=== PATIENT | female | born 1940 | race Caucasian/White ===

== ENCOUNTER 2016-05-30 11:09 | Outpatient (CLI) | payer MEDICARE, OTHER | END 2016-05-30 11:10 | disposition home or self-care (01) | DX: G47.33 Obstructive sleep apnea (adult) (pediatric) (principal); R09.02 Hypoxemia | CPT/HCPCS: 99214; G0463 ==

== ENCOUNTER 2016-07-28 08:40 | Outpatient (CLI) | payer MEDICARE, OTHER | END 2016-07-28 08:41 | disposition home or self-care (01) | DX: Z51.81 Encounter for therapeutic drug level monitoring (principal); E78.9 Disorder of lipoprotein metabolism, unspecified; N28.9 Disorder of kidney and ureter, unspecified ==

== ENCOUNTER 2016-08-14 13:22 | Outpatient (CLI) | payer MEDICARE, OTHER | END 2016-08-14 13:23 | disposition home or self-care (01) | DX: R06.02 Shortness of breath (principal); F17.200 Nicotine dependence, unspecified, uncomplicated ==

== ENCOUNTER 2016-11-06 08:49 | Outpatient (CLI) | payer MEDICARE, OTHER ==
[2016-11-06 20:24] LABS: ALBUMIN/GLOBULIN RATIO 1.1 (1.0-2.2); BILIRUBIN,TOTAL 1.2 mg/dL (0.2-1.0); BUN - BLOOD UREA NITROGEN 23 mg/dL (6-20); CALCIUM 9.3 mg/dL (8.5-10.3); CARBON DIOXIDE - CO2 32 mmol/L (21-32); CHLORIDE 102 mmol/L (101-111); CHOL/HDL RATIO 3.2 (<4.4); CHOLESTEROL 142 mg/dL; CREATININE 0.8 mg/dL (0.4-1.0); GFR - MDRD 70 (>89); GLUCOSE 103 mg/dL (70-100); HDL CHOLESTEROL 44 mg/dL; LDL/HDL RATIO 1.5 (<4.4); POTASSIUM 4.1 mmol/L (3.5-5.0); SODIUM 141 mmol/L (135-145); TOTAL PROTEIN 7.3 g/dL (6.7-8.2); TRIGLYCERIDES 167 mg/dL; VLDL CHOLESTEROL 33 mg/dL
== END 2016-11-06 08:50 | disposition home or self-care (01) ==
LOC: LAB.F 08:49
PROVIDERS: ATTEND Physician Assistant Medical
DX: E78.9 Disorder of lipoprotein metabolism, unspecified (principal)
CPT/HCPCS: 36415; 80053; 80061

== ENCOUNTER 2017-01-09 11:08 | Outpatient (CLI) | payer MEDICARE, OTHER ==
--- NOTE | 2017-01-09 12:12 | Ultrasound Report ---
LEFT LEG VENOUS DUPLEX: 01/09/2017 CLINICAL INDICATION: Left edema, swelling. TECHNIQUE: Real-time sonographic vascular imaging was performed by the tetryl screen operator through the left l ower extremity utilizing both color flow and Doppler spectral analysis. Multiple architectural representative stat ic images were saved for review. FINDINGS: A left lower extremity venous sonogram is performed revealing the common femoral, superfici al femoral, profunda femoris, and popliteal veins to be adequately visualized without intraluminal de fects. There is normal venous compression, augmentation, phasicity, and spontaneity of venous flow. In the calf, the visualized more cephalad portions of posterior tibial and peroneal veins are grossly compressible, without filling defects. IMPRESSION: NO EVIDENCE OF DEEP VENOUS THROMBOSIS. JOB #: [id number] EXT JOB #:[id number]
== END 2017-01-09 11:09 | disposition home or self-care (01) ==
LOC: DI 11:08
PROVIDERS: ATTEND Physician Assistant Medical
DX: R60.0 Localized edema (principal)

== ENCOUNTER 2017-11-22 10:38 | Outpatient (CLI) | payer MEDICARE, OTHER | END 2017-11-22 10:39 | disposition home or self-care (01) | LOC: SC 10:38 | PROVIDERS: ATTEND Nurse Practitioner Family | DX: G47.33 Obstructive sleep apnea (adult) (pediatric) (principal) | CPT/HCPCS: 99214; G0463; 99212 ==

== ENCOUNTER 2017-12-19 09:29 | Outpatient (CLI) | payer MEDICARE, OTHER ==
[2017-12-19 18:12] LABS: HB2 TOTAL 15.1 g/dL; HEMOGLOBIN A1C 0.56 g/dL; HEMOGLOBIN A1C % 5.5 % (4.6-6.2)
[2017-12-19 18:25] LABS: ALBUMIN/GLOBULIN RATIO 1.2 (1.0-2.2); ALKALINE PHOSPHATASE 89 IU/L (42-121); ALT ALANINE AMINOTRANSFERASE 17 IU/L (10-60); AST ASPARTATE AMINOTRANSFERASE 20 IU/L (10-42); BILIRUBIN,TOTAL 1.2 mg/dL (0.2-1.0); BUN - BLOOD UREA NITROGEN 27 mg/dL (6-20); CALCIUM 9.4 mg/dL (8.5-10.3); CARBON DIOXIDE - CO2 30 mmol/L (21-32); CHLORIDE 107 mmol/L (101-111); CHOL/HDL RATIO 3.1 (<4.4); CHOLESTEROL 127 mg/dL; CREATININE 0.7 mg/dL (0.4-1.0); GFR - MDRD 81 (>89); GLUCOSE 92 mg/dL (70-100); HDL CHOLESTEROL 41 mg/dL; LDL CHOLESTEROL,CALCULATED 63 mg/dL; LDL/HDL RATIO 1.5 (<4.4); SODIUM 142 mmol/L (135-145); TOTAL PROTEIN 7.4 g/dL (6.7-8.2); VLDL CHOLESTEROL 23 mg/dL
== END 2017-12-19 09:30 | disposition home or self-care (01) ==
LOC: LAB.F 09:29
PROVIDERS: ATTEND Internal Medicine
DX: E78.9 Disorder of lipoprotein metabolism, unspecified (principal); R73.01 Impaired fasting glucose
CPT/HCPCS: 36415; 80053; 80061; 83036; 83721

== ENCOUNTER 2018-07-23 07:13 | Outpatient (CLI) | payer MEDICARE, OTHER ==
[2018-07-23 10:58] LABS: CALCIUM 9.2 mg/dL (8.5-10.3); CREATININE 0.7 mg/dL (0.4-1.0)
[2018-07-23 11:05] LABS: CREATININE,URINE 164.8 mg/dL; MICROALBUM/CREATININE RATIO,UR 12.1 ug/mg (<30.0)
[2018-07-23 11:35] LABS: HB2 TOTAL 14.6 g/dL; HEMOGLOBIN A1C 0.57 g/dL; HEMOGLOBIN A1C % 5.7 % (4.6-6.2)
== END 2018-07-23 07:14 | disposition home or self-care (01) ==
LOC: LAB.F 07:13
PROVIDERS: ATTEND Physician Assistant Medical
DX: R73.01 Impaired fasting glucose (principal)
CPT/HCPCS: 36415; 80048; 82043; 82570; 83036

== ENCOUNTER 2018-08-30 15:26 | Outpatient (CLI) | payer MEDICARE, OTHER ==
[2018-08-30 17:43] LABS: BASOPHILS # (AUTO) 0.1 10^3/uL (0.0-0.1); BASOPHILS % (AUTO) 0.8 %; EOSINOPHILS # (AUTO) 0.1 10^3/uL (0.0-0.7); EOSINOPHILS % (AUTO) 1.7 %; HGB - HEMOGLOBIN 13.4 g/dL (12.0-16.0); LYMPHOCYTES # (AUTO) 2.2 10^3/uL (1.5-3.5); LYMPHOCYTES % (AUTO) 26.4 %; MEAN CORPUSCULAR HEMOGLOBIN 31.6 pg (27.0-31.0); MEAN CORPUSCULAR HGB CONC 33.3 g/dL (32.0-36.0); MEAN CORPUSCULAR VOLUME 94.9 fL (81.0-99.0); MEAN PLATELET VOLUME 9.2 fL (7.9-10.8); MONOCYTES # (AUTO) 0.9 10^3/uL (0.0-1.0); MONOCYTES % (AUTO) 11.1 %; PLT - PLATELET COUNT 203 10^3/uL (130-450); RED BLOOD COUNT 4.22 10^6/uL (4.20-5.40); RED CELL DISTRIBUTION WIDTH 12.6 % (12.0-15.0); WHITE BLOOD COUNT 8.3 x10^3/uL (4.8-10.8)
== END 2018-08-30 15:27 | disposition home or self-care (01) ==
LOC: LAB.F 15:26
PROVIDERS: ATTEND Physician Assistant Medical
DX: R53.83 Other fatigue (principal)
CPT/HCPCS: 36415; 84443; 85025

== ENCOUNTER 2018-09-25 11:18 | Outpatient (CLI) | payer MEDICARE, OTHER ==
--- NOTE | 2018-09-25 14:13 | XRAY Report ---
Reason: WRIST JOINT PAIN,RIGHT Procedure Date: 09/25/2018 Accession Number: [id number] / [id number] Procedure: XR - Wrist 2 View RT CPT Code: FULL RESULT: EXAM: RIGHT WRIST RADIOGRAPHY EXAM DATE: 09/25/2018 12:14 PM. CLINICAL HISTORY: Right wrist pain. COMPARISON: None. TECHNIQUE: 3 views. FINDINGS: Bones: There is a nondisplaced comminuted fracture of the radial styloid with intra-articular involvement, seen best on lateral view. There is a small dorsal avulsed fragment. Joints: Minimal chronic narrowing of the radiocarpal joint Soft Tissues: Normal. No soft tissue swelling. IMPRESSION: Nondisplaced comminuted distal right radial styloid process fracture as described above. The findings were discussed with the referring physician's nurse Kathy. BERGERON
== END 2018-09-25 11:19 | disposition home or self-care (01) ==
LOC: DI 11:18
PROVIDERS: ATTEND Registered Nurse
DX: S52.514A Nondisplaced fracture of right radial styloid process, initial encounter for closed fracture (principal)

== ENCOUNTER 2019-04-14 14:30 | Outpatient (CLI) | payer MEDICARE, OTHER ==
[2019-04-14 15:34] VITALS: BP 108/82
--- NOTE | 2019-04-14 15:34 | SLEEP CARE CONSULTATION ---
Information from patient questionnaire entered by Judi Gómez. I have reviewed and concur with the information entered by Judi Gómez. This document represents the service I personally performed and the decisions made by me, Abril Kruger, RN, MSN, PRINCIPAL NETWORK ENGINEER. History of Present Illness Previous diagnosis: Moderate, Obstructive Sleep Apnea-Hypopnea Syndrome AHI: 25.3 Reason for follow up: annual (last seen 2017) Equipment type: BiPAP Equipment obtained from: [facility] (having getting supplies and would like to transfer - she also gets her O2 there as well.) Mask style: Nasal (Wisp) Mask brand: Respironics Backup mask available: Yes Last cushion change: many months HPI additional information: Patient working with new PCP for depression as advised at last visit. Medications recently changed. Patient continues to require long sleep time with daily nap. Progress notes reviewed : Overnight pulse oximetry ordered in November with BiPAP and oxygen performed in March and showed oxygen saturation of </=88% 40 minutes or 5.5% of the time used and apnea well controlled with residual AHI of 2.5. Her BiPAP was increased from 17/11 to 18/10 to assist reduction of obesity hypoventilation. No other changed in medical changes stated by patient. However, she did not use Spiriva orderd due to cost. I reviewed benefit of Spiriva and advised to contact her loc[facility] ten[facility] psychiatrist to discuss other medication that patient can afford. Patient agreed with plan. Another pulse oximetry was ordered on new BiPAP pressure with oxygen at 5liters. Patient advised to contact this office if not contacted by [facility] for test in 1-2 weeks and agreed with plan. Multiple calls noted to get pulse oximetry results. Patient also called voicing frustration with [facility] and request to transfer. An appointment was made in August. The June 15 pulse oximetry results recievee 07/24/18 and better results: Now onlyu 5:16 minutes oxygen saturation ,+88% and 15.16 minutes ,+ 89%. Thus I increased the BiPAP pressure range to 20/12 for obesity hypoventilation. Another overnight pulse oximetry was ordered new pressure and oxygen flow of 5 liters with BiPAP. This was completed but patient unable to get results. She was to see me in August but fell and cancelled appointment and forgot to reschedule. Patient bought a So Clean device and likes benefit. CPAP Compliance Data - Data Reviewed with Patient Average duration of nightly device use: 12.1 Compliance rate %: 99.4 (180 days includes nap daily) Current pressure setting (cmH2O): 20/12 Humidity settin Heated hose settin Average residual AHI: 3.7 Average large leak: 1 sec Subjective Patient concerns: reports: dry mouth, nose, throat (occasionally ), other (mask not fitting correctly. She is using an old style but would like to try new style. ). denies: aerophagia, mask discomfort, air blowing in eyes, mask leak noise, condensation in mask/hose, nasal congestion, epistaxis Observed to snore while using device: No (single ) Current pressure setting perceived as: comfortable On therapy, patient: reports: sleeping better, awakening more refreshed, being more awake and alert during the day, more rested overall. denies: drowsiness while driving Initial [place] Sleepiness Scale score: 3 Current [place] Sleepiness Scale score: 2 Allergies and Home Medications Known drug allergies: Yes Home medication list reviewed: Yes (see list of corrections) Review of Systems Review of systems same as previous: No (What she thought was a sinus infection was a tooth abscess and pulled ) Physical Exam Blood Pressure: 108/82 Cuff size: wrist Heart Rate: 84 O2 Saturation: 96 Height: 5 ft 3 in Weight: 314 lb Weight change since last visit: gained 10 pounds Body Mass Index: 55.6 BMI Classification: Obesity Class 3 Impression and Plan 1. Obstructive Sleep Apnea-Hypopnea Syndrome, moderate, with good treatment compliance and good apnea control. On BiPAP therapy, the patient has better sleep quality and is more rested overall. However, she continues to require extra sleep and is working on her depression managment with her new PCP Dr. Goff. Medications recently modified. She is also having difficulty getting supplies as well as getting results from pulse oximetries ordered to check nocturnal hypoxia efficacy on her oxygen at 5 liters per BiPAP. Thus patient would like to transfer to another company. I will have my family support coordinator inform her of options and make a transfer [facility] prescription for BiPAP and a repeat pulse oximetry to check efficacy of last BiPAP adjustment. It is hoped the new DME will have better response to order. The oxygen care will also be transfered if possible. Generally it has to be 5 years of use before transfer can be completed. I searched chart and she was started on oxygen in 2016 so another year until transfer can be made. For her mask concerns, I will order a mask refitting. She has also gained most of weight she lost last year. She is advised to lose weight, which will also reduce her obesity hypoventilation. I will also have patient discuss weight loss with her PCP and recommend starting with a diet consultation. Patient's apnea severity and rationale for treatment to reduce apnea, improve sleep quality and reduce cardiovascular and cerebrovascular events was reviewed. I also reviewed the benefit of consistent device use of CPAP for depression/anxiety. * Continue BiPAP pressure at 20/12 cmH2O * Transfer of care to new DME for CPAP * overnight pulse oximetry * Notify me if snoring with mask or feeling that the pressure is too much or too little * Attempt to lose weight * Call this office if any problems using CPAP * Follow up with PCP for weight loss / diet consultation * Return for follow up in 1 year , or sooner if concerns arise * * Addendum 18:30 Called patient to inform her I will have new DME do the pulse oximetry. She is to call me when completed next month so can look for the results. * I also again reviewed her weight and effect to her obesity hyperventilation and encouraged her to discuss diet consultation in her next follow up with Dr. Goff. Also Weight watchers has been successful for some of my patients and to discuss with Dr. Goff. Patient agreed with plan. Time Spent with Patient (minutes): 30 I spent 100% of this visit face to face with the patient with greater than 50% of this was spent time counseling the patient and coordination of care.It also took some time to review her progress notes of pressure adjustments and pulse oximetry results.
== END 2019-04-14 14:31 | disposition home or self-care (01) ==
LOC: SC 14:30
PROVIDERS: ATTEND Nurse Practitioner Family
DX: G47.33 Obstructive sleep apnea (adult) (pediatric) (principal); E66.2 Morbid (severe) obesity with alveolar hypoventilation; Z68.43 Body mass index [BMI] 50.0-59.9, adult
CPT/HCPCS: 99214; G0463; 99212

== ENCOUNTER 2020-03-09 17:28 | Outpatient (CLI) | payer MEDICARE, OTHER | END 2020-03-09 17:29 | disposition critical access hospital (66) | LOC: EMS 17:28 | PROVIDERS: ATTEND Surgery | DX: R53.1 Weakness (principal); R42 Dizziness and giddiness; R06.09 Other forms of dyspnea | CPT/HCPCS: A0425; A0427 ==

== ENCOUNTER 2020-03-09 19:04 | Inpatient (IN) | payer MEDICARE, OTHER ==
[2020-03-09] MEDS ORDERED: VANCOMYCIN INJ 1.5 GM in SODIUM CHLORIDE 0.9% 500 ML IV STA (19:50)
--- NOTE | 2020-03-09 20:01 | XRAY Report ---
PROCEDURE: Chest 1 View X-Ray INDICATIONS: Chest Pain TECHNIQUE: One view of the chest was acquired. COMPARISON: 08/14/16. FINDINGS: Surgical changes and devices: None. Lungs and pleura: No pleural effusions or pneumothorax. Lungs are clear. Mediastinum: Mediastinal contours appear normal. Heart size is normal. Bones and chest wall: No suspicious bony lesions. Overlying soft tissues appear unremarkable. IMPRESSION: 1. No acute cardiopulmonary disease. Reviewed by: Jose Javier MD on 03/09/2020 8:00 PM [facility] Approved by: Jose Javier MD on 03/09/2020 8:00 PM [facility] Station ID: [id number]
[2020-03-09] MEDS ORDERED: VANCOMYCIN 1 GM VIAL ONE (20:05)
[2020-03-09 20:12] LABS: BASOPHILS # (AUTO) 0.1 10^3/uL (0.0-0.1); BASOPHILS % (AUTO) 0.3 %; EOSINOPHILS % (AUTO) 0.1 %; HGB - HEMOGLOBIN 13.7 g/dL (12.0-16.0); LYMPHOCYTES # (AUTO) 1.2 10^3/uL (1.5-3.5); LYMPHOCYTES % (AUTO) 7.2 %; MEAN CORPUSCULAR HEMOGLOBIN 32.5 pg (27.0-31.0); MEAN CORPUSCULAR HGB CONC 33.6 g/dL (32.0-36.0); MEAN CORPUSCULAR VOLUME 96.9 fL (81.0-99.0); MEAN PLATELET VOLUME 11.6 fL (7.9-10.8); MONOCYTES # (AUTO) 1.2 10^3/uL (0.0-1.0); MONOCYTES % (AUTO) 7.5 %; NEUTROPHILS # (AUTO) 13.6 10^3/uL (1.5-6.6); PLT - PLATELET COUNT 155 10^3/uL (130-450); RED BLOOD COUNT 4.21 10^6/uL (4.20-5.40); RED CELL DISTRIBUTION WIDTH 12.8 % (12.0-15.0); WHITE BLOOD COUNT 16.2 x10^3/uL (4.8-10.8)
[2020-03-09 20:18] LABS: INR 1.5 (0.8-1.2)
[2020-03-09 20:27] LABS: ALBUMIN 3.3 g/dL (3.2-5.5); ALBUMIN/GLOBULIN RATIO 0.9 (1.0-2.2); BILIRUBIN,TOTAL 1.8 mg/dL (0.2-1.0); CALCIUM 8.7 mg/dL (8.5-10.3); CREATININE 1.1 mg/dL (0.4-1.0); TOTAL PROTEIN 6.9 g/dL (6.7-8.2)
[2020-03-09] MEDS ORDERED: ASPIRIN 325 MG TABLET PO STA (21:03)
[2020-03-09 22:13] LABS: BILIRUBIN,URINE NEGATIVE (NEGATIVE); GLUCOSE, URINE (UA) NEGATIVE (NEGATIVE); KETONES,URINE (UA) 15 mg/dL (NEGATIVE); LEUKOCYTE ESTERASE, URINE NEGATIVE (NEGATIVE); NITRITE,URINE NEGATIVE (NEGATIVE); OCCULT BLOOD,URINE MODERATE (NEGATIVE); PROTEIN,URINE 30 mg/dL (NEGATIVE); UROBILINOGEN,URINE 0.2 (NORMAL) E.U./dL (NORMAL)
[2020-03-09 22:14] LABS: CLARITY,URINE HAZY (CLEAR)
[2020-03-09 22:21] LABS: SQUAMOUS EPITHELIAL CELL,UR MOD Squamous (<= Few)
[2020-03-09 22:22] LABS: BACTERIA,URINE Few /HPF (None Seen)
[2020-03-09] MEDS ORDERED: ONDANSETRON ODT 4 MG TABLET TL PRN (23:12)
[2020-03-09] MEDS ORDERED: ONDANSETRON 4 MG/2 ML VIAL IVP PRN (23:12)
--- NOTE | 2020-03-09 23:18 | ED Physician Documentation ---
History of Present Illness - Stated complaint Stated Complaint: FALL - Chief complaint Chief Complaint: General - History obtained from History obtained from: Patient, EMS - Additonal information Additional information: Patient is brought to the emergency department after sustaining a fall at home. Patient states that she on twice in the last couple of days while trying to get out of her bed. 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 Patient states that today, her feet slid and she fell to the floor on her bottom. She denies being injured in any way, but medics report that she was too weak to get up that is why they were called. They stated they tried to get her up to walk with a walker and she was not able to do this very well, due to weakness. Patient states she lives by herself at home and does drive. She states that she has felt depressed because of the isolation and all of the turmoil going on in the world and her country. She states that she is just been staying at home by herself. She does have a neighbor that checks in on her and states she has some family members that live nearby, as well. Patient denies any fevers or chills. No cough or shortness of breath. No chest pain, abdominal pain, or nausea/vomiting. No diarrhea. Patient does have a wound on the bottom of her left foot that has been monitored by podiatry. She states she has had the same carpet on her floor for years and is not sure why it feels "slippery" now. She states that she normally walks with a cane around the house but will use a walker outside. No other complaints at this time. Review of Systems Ten Systems: 10 systems reviewed and negative Constitutional: reports: Reviewed and negative. denies: Fever, Chills Eyes: reports: Reviewed and negative Ears: reports: Reviewed and negative Nose: reports: Reviewed and negative Throat: reports: Reviewed and negative Cardiac: reports: Reviewed and negative. denies: Chest pain / pressure Respiratory: reports: Reviewed and negative. denies: Dyspnea GI: reports: Reviewed and negative : reports: Reviewed and negative. denies: Dysuria Skin: reports: Reviewed and negative Musculoskeletal: reports: Extremity swelling, Reviewed and negative Neurologic: reports: Generalized weakness. 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 HEENT: Cataracts - Present Medications Home Medications: Ambulatory Orders Medication Instructions Recorded Confirmed Losartan [Cozaar] 25 mg PO DAILY 03/09/20 03/09/20 Rosuvastatin Calcium [Crestor] 5 mg PO DAILY 03/09/20 03/10/20 buPROPion HCl [Bupropion Xl] 150 mg PO DAILY 03/10/20 03/10/20 - Allergies Allergies/Adverse Reactions: Allergies Allergy/AdvReac Type Severity Reaction Status Date / Time acetaminophen [From Vicodin] Allergy Mild Nausea Verified 03/09/20 19:16 hydrocodone bitartrate * Allergy Mild Nausea Verified 03/09/20 19:16 [From Vicodin] - Social History Does the pt smoke?: Yes Smoking Status: Current every day smoker Does the pt drink ETOH?: Yes Does the pt have substance abuse?: No PD ED PE NORMAL - Vitals Vital signs reviewed: Yes - General General: Alert and oriented X 3, No acute distress - HEENT HEENT: Atraumatic, PERRL, EOMI, Moist mucous membranes - Neck Neck: Supple, no meningeal sign - Cardiac Cardiac: RRR, No murmur - Respiratory Respiratory: No respiratory distress, Clear bilaterally - Abdomen Abdomen: Soft, Non tender, Non distended - Back Back: No spinal TTP - Derm Derm: Warm and dry, Other (Patient has a large area of moderate erythema extending from her left foot up to her mid lateral left thigh. Erythema enco mpasses most of her left lower leg and the lateral and anterolateral aspects of the left thigh. Nonpurulent, cracked, stage III ulcerated L foot plantar lesion) - Extremities Extremities: No deformity - Neuro Neuro: Alert and oriented X 3 - Psych Psych: Normal mood, Normal affect Results - Vitals Vitals: Oxygen O2 Source Room air - Labs Labs: Microbiology 03/09/20 19:59 Blood Culture - Preliminary Blood - Left Iv Start Staphylococcus Anirudh Ssp.hominis 03/09/20 20:05 Blood Culture - Preliminary Blood - Right Arm NO GROWTH AFTER 2 DAYS Laboratory Tests 03/09/20 03/09/20 03/09/20 19:59 19:59 19:59 WBC 16.2 H RBC 4.21 Hgb 13.7 Hct 40.8 MCV 96.9 MCH 32.5 H MCHC 33.6 RDW 12.8 Plt Count 155 MPV 11.6 H Neut # (Auto) 13.6 H Lymph # (Auto) 1.2 L [place] # (Auto) 1.2 H Eos # (Auto) 0.0 Baso # (Auto) 0.1 Absolute Nucleated RBC 0.00 Nucleated RBC % 0.0 PT 16.0 H INR 1.5 H Sodium Potassium Chloride Carbon Dioxide Anion Gap BUN Creatinine Estimated GFR (MDRD) Glucose Calcium Total Bilirubin AST ALT Alkaline Phosphatase Troponin I High Sens 243.0 H* B-Natriuretic Peptide Total Protein Albumin Globulin Albumin/Globulin Ratio Lipase Urine Color Urine Clarity Urine pH Ur Specific [place] Urine Protein Urine Glucose (UA) Urine Ketones Urine Occult Blood Urine Nitrite Urine Bilirubin Urine Urobilinogen Ur Leukocyte Esterase Urine RBC Urine WBC Ur Squamous Epith Cells Urine Bacteria Ur Microscopic Review Urine Culture Comments 03/09/20 03/09/20 03/09/20 19:59 20:05 21:11 WBC RBC Hgb Hct MCV MCH MCHC RDW Plt Count MPV Neut # (Auto) Lymph # (Auto) [place] # (Auto) Eos # (Auto) Baso # (Auto) Absolute Nucleated RBC Nucleated RBC % PT INR Sodium 137 Potassium 3.5 Chloride 100 L Carbon Dioxide 26 Anion Gap 11.0 BUN 28 H Creatinine 1.1 H Estimated GFR (MDRD) 48 L Glucose 125 H Calcium 8.7 Total Bilirubin 1.8 H AST 80 H ALT 36 Alkaline Phosphatase 72 Troponin I High Sens 214.6 H* B-Natriuretic Peptide 86 Total Protein 6.9 Albumin 3.3 Globulin 3.6 Albumin/Globulin Ratio 0.9 L Lipase 24 Urine Color Urine Clarity Urine pH Ur Specific [place] Urine Protein Urine Glucose (UA) Urine Ketones Urine Occult Blood Urine Nitrite Urine Bilirubin Urine Urobilinogen Ur Leukocyte Esterase Urine RBC Urine WBC Ur Squamous Epith Cells Urine Bacteria Ur Microscopic Review Urine Culture Comments 03/09/20 22:00 WBC RBC Hgb Hct MCV MCH MCHC RDW Plt Count MPV Neut # (Auto) Lymph # (Auto) [place] # (Auto) Eos # (Auto) Baso # (Auto) Absolute Nucleated RBC Nucleated RBC % PT INR Sodium Potassium Chloride Carbon Dioxide Anion Gap BUN Creatinine Estimated GFR (MDRD) Glucose Calcium Total Bilirubin AST ALT Alkaline Phosphatase Troponin I High Sens B-Natriuretic Peptide Total Protein Albumin Globulin Albumin/Globulin Ratio Lipase Urine Color YELLOW Urine Clarity HAZY Urine pH 7.0 Ur Specific [place] 1.020 Urine Protein 30 H Urine Glucose (UA) NEGATIVE Urine Ketones 15 H Urine Occult Blood MODERATE H Urine Nitrite NEGATIVE Urine Bilirubin NEGATIVE Urine Urobilinogen 0.2 (NORMAL) Ur Leukocyte Esterase NEGATIVE Urine RBC 6-10 H Urine WBC 0-3 Ur Squamous Epith Cells MOD Squamous H Urine Bacteria Few Ur Microscopic Review INDICATED Urine Culture Comments NOT INDICATED PD MEDICAL DECISION MAKING - ED course Complexity details: reviewed old records, reviewed results, re-evaluated patient, considered differential, d/w patient ED course: The patient appears to have a cellulitis stemming from her left foot, and encompassing a large portion of her left lower extremity. She had not really had any other symptoms besides generalized weakness, but it was concerned about the recent development of both, but I did work her up. She was found to have a significantly elevated troponin, somewhat surprisingly, in the 240s. This was repeated a couple hours later and was lower than initially, but still elevated at 214. The patient had stated that she is DNR but was open to procedures if she should need them I spoke with Dr. 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 Dsouza. Dr. Licea stated that they would not plan to catheterize this patient during an admission and that it is not certain that the patient has had an OR. He felt the patient could have serial troponins trended, followed by an echocardiogram and stress test. I spoke with Dr. Edwards here at [facility], and she agreed to the patient to her service. The patient is on metoprolol already and has been given an aspirin, but for now, as per my conversation with Dr. Edwards, heparin will be held as it is not clear that the patient has had an actual OR. Pt has received vancomycin here in the emergency department, and blood cultures have been drawn and sent. Departure - Departure Disposition: 66 [facility] DC/Xfer Clinical Impression: Elevated troponin Cellulitis Qualifiers: Site of cellulitis: extremity Site of cellulitis of extremity: lower extremity Laterality: left Qualified Code(s): L03.116 - Cellulitis of left lower limb Condition: Serious Discharge Date/Time: 03/10/20 00:50
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
[2020-03-10] MEDS: ceFAZolin 1 GM in SODIUM CHLORIDE 0.9% MINIBAG 100 ML IV SCH ×4 (00:17→23:44)
[2020-03-10] MEDS: SODIUM CHLORIDE 0.9% 1,000 ML IV SCH ×2 (00:17→10:20)
[2020-03-10] MEDS ORDERED: ceFAZolin 1 GM VIAL ONE (00:21)
[2020-03-10 00:35] LABS: C. PNEUMONIAE- RESP PCR PANEL NOT DETECTED
[2020-03-10] MEDS: SODIUM CHLORIDE FLUSH 0.9% 10 ML SYRINGE IVP SCH ×4 (02:39→23:44)
[2020-03-10 06:06] LABS: BASOPHILS % (AUTO) 0.2 %; HGB - HEMOGLOBIN 12.5 g/dL (12.0-16.0); LYMPHOCYTES # (AUTO) 1.4 10^3/uL (1.5-3.5); LYMPHOCYTES % (AUTO) 10.8 %; MEAN CORPUSCULAR HEMOGLOBIN 31.4 pg (27.0-31.0); MEAN CORPUSCULAR HGB CONC 32.6 g/dL (32.0-36.0); MEAN CORPUSCULAR VOLUME 96.2 fL (81.0-99.0); MEAN PLATELET VOLUME 11.9 fL (7.9-10.8); MONOCYTES # (AUTO) 1.2 10^3/uL (0.0-1.0); MONOCYTES % (AUTO) 8.8 %; NEUTROPHILS # (AUTO) 10.5 10^3/uL (1.5-6.6); NEUTROPHILS % (AUTO) 79.7 %; PLT - PLATELET COUNT 139 10^3/uL (130-450); RED BLOOD COUNT 3.98 10^6/uL (4.20-5.40); RED CELL DISTRIBUTION WIDTH 12.9 % (12.0-15.0); WHITE BLOOD COUNT 13.2 x10^3/uL (4.8-10.8)
[2020-03-10 06:19] LABS: CALCIUM 8.4 mg/dL (8.5-10.3); CREATININE 0.7 mg/dL (0.4-1.0)
[2020-03-10 06:38] LABS: THYROID STIMULATING HORMONE 0.53 uIU/mL (0.34-5.60)
[2020-03-10] MEDS: NYSTATIN CREAM 15 GM TUBE TOP SCH ×3 (07:48→20:11)
[2020-03-10] MEDS ORDERED: POTASSIUM CHLORIDE 20 MEQ TABLET PO ONE (08:14)
[2020-03-10 08:55] LABS: CRP - C-REACTIVE PROTEIN 19.7 mg/dL (0-1.0); MAGNESIUM 2.1 mg/dL (1.7-2.8); PHOSPHORUS 2.2 mg/dL (2.5-4.6)
[2020-03-10] MEDS: ENOXAPARIN 40 MG/0.4 ML SYRINGE SUBQ SCH (09:39)
[2020-03-10] MEDS: ACETAMINOPHEN 325 MG TABLET PO PRN (09:40)
[2020-03-10] MEDS: oxyCODONE 5 MG TABLET PO PRN (09:40)
[2020-03-10 09:48] LABS: HEMOGLOBIN A1c% 5.5 % (4.27-6.07)
[2020-03-10 09:54] LABS: HEMOGLOBIN A1c% 5.5 % (4.27-6.07)
--- NOTE | 2020-03-10 12:32 | PROVIDER PROGRESS NOTE ---
Assessment/Plan - Problem List (1) Cellulitis Qualifiers: Site of cellulitis: extremity Site of cellulitis of extremity: lower extremity Laterality: left Qualified Code(s): L03.116 - Cellulitis of left lower limb Assessment/Plan: 03/10 improved. Her left lower extremity erythema is reduced, tenderness in the left feet also reduced. WBC is reduced, patient has no fever, blood culture is pending. Continue intravenous antibiotics, order ultrasound for left feet to rule out abscess or pus. Recommend podiatry followup and she has appt 03/16. (2) Elevated troponin Conclusion/Plan: Patient denies chest pain, patient is hemodynamic stable now. Repeated troponin is flat. Emergency room physician has discussed with cardiology. Does not feel there is an NSTEMI in place. As such the patient will be trended for her troponins. We will plan for nuclear medicine stress test and echocardiogram.Patient has stress test today, results is pending (3) History of fall Conclusion/Plan: we will PT/OT evaluate and treat for pt. Present as part of review of systems in the electronic medical record off and on since 2012. No specific cause. 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 - Current Meds Current Meds: Current Medications Generic Name Dose Route Start Last Admin Trade Name Freq PRN Reason Stop Dose Admin Acetaminophen 650 mg 03/09/20 23:12 03/10/20 09:40 Tylenol PO 650 mg Q4HR PRN Administration Pain 1 to 4 Enoxaparin Sodium 40 mg 03/10/20 09:00 03/10/20 09:39 Lovenox SUBQ 40 mg DAILY JUANITA Administration Sodium Chloride 1,000 mls @ 100 mls/hr 03/09/20 23:45 03/10/20 10:20 Normal Saline 0.9% IV 03/10/20 19:44 100 mls/hr .Q10H JUANITA Administration Cefazolin Sodium 1 gm/ Sodium 100 mls @ 200 mls/hr 03/10/20 00:00 03/10/20 08:25 Chloride IV Infused Q8H JUANITA Infusion Nystatin 1 applic 03/10/20 02:00 03/10/20 09:39 Mycostatin Cream TOP 1 applic BID JUANITA Administration Oxycodone HCl 5 mg 03/09/20 23:12 03/10/20 09:40 Roxicodone PO 5 mg Q4HR PRN Administration Pain 5 to 7 Sodium Chloride 10 ml 03/10/20 01:00 03/10/20 09:40 Normal Saline Flush 0.9% IVP Not Given 0100,0900,1700 JUANITA - Lab Result Fish Bone Diagrams: 03/10/20 05:30 03/10/20 05:30 - Additional Planning My Orders: My Active Orders 03/10/20 Evaluate and Treat OT [OT] Routine Evaluate and Treat PT [PT] Routine 03/10/20 11:52 Duplex Ext Veins Left [US] Routine 03/11/20 05:00 CRP - C-REACTIVE PROTEIN [CHEM] DAILYLAB 03/12/20 05:00 CRP - C-REACTIVE PROTEIN [CHEM] DAILYLAB 03/13/20 05:00 CRP - C-REACTIVE PROTEIN [CHEM] DAILYLAB 03/14/20 05:00 CRP - C-REACTIVE PROTEIN [CHEM] DAILYLAB 03/15/20 05:00 CRP - C-REACTIVE PROTEIN [CHEM] DAILYLAB Subjective - Subjective Patient Reports: Feeling Better Nursing Reports: No Complaints Objective Vital Signs: Vital Signs - 24 hr 03/09/20 03/09/20 03/09/20 19:10 21:36 23:11 Temperature 37 C Heart Rate 100 100 96 Heart Rate [ Brachial] Respiratory 22 18 16 Rate Blood Pressure 134/102 H 113/65 127/76 Blood Pressure [Right Radial artery] O2 Saturation 100 97 99 03/10/20 03/10/20 03/10/20 00:47 01:48 05:40 Temperature 36.7 C 36.9 C Heart Rate 97 Heart Rate [ 95 92 Brachial] Respiratory 18 24 20 Rate Blood Pressure 138/100 H Blood Pressure 125/55 L 123/63 [Right Radial artery] O2 Saturation 96 95 95 03/10/20 08:00 Temperature 37.1 C Heart Rate Heart Rate [ 96 Brachial] Respiratory 18 Rate Blood Pressure Blood Pressure 117/58 L [Right Radial artery] O2 Saturation 93 Oxygen O2 Source Room air I&O (Last 24 Hrs): Intake and Output Totals x24h 03/08/20 03/09/2020 23:59 23:59 23:59 Intake Total 500 1650 Output Total 550 300 Balance -50 1350 General: Alert, Oriented x3, No acute distress HEENT: Atraumatic, PERRLA Neck: Supple Lymphatic: no adenopathy Neuro: Alert, Non Focal, Oriented Times 3 Cardiovascular: Regular rate, Normal S1, Normal S2 Respiratory: Chest non-tender, No respiratory distress Abdomen: Normal bowel sounds, Soft, No tenderness - Results Results: Laboratory Results WBC 13.2 x10^3/uL (4.8-10.8) H 03/10/20 05:30 RBC 3.98 10^6/uL (4.20-5.40) L 03/10/20 05:30 Hgb 12.5 g/dL (12.0-16.0) 03/10/20 05:30 Hct 38.3 % (37.0-47.0) 03/10/20 05:30 MCV 96.2 fL (81.0-99.0) 03/10/20 05:30 MCH 31.4 pg (27.0-31.0) H 03/10/20 05:30 MCHC 32.6 g/dL (32.0-36.0) 03/10/20 05:30 RDW 12.9 % (12.0-15.0) 03/10/20 05:30 Plt Count 139 10^3/uL (130-450) 03/10/20 05:30 MPV 11.9 fL (7.9-10.8) H 03/10/20 05:30 Neut # (Auto) 10.5 10^3/uL (1.5-6.6) H 03/10/20 05:30 Lymph # (Auto) 1.4 10^3/uL (1.5-3.5) L 03/10/20 05:30 [place] # (Auto) 1.2 10^3/uL (0.0-1.0) H 03/10/20 05:30 Eos # (Auto) 0.0 10^3/uL (0.0-0.7) 03/10/20 05:30 Baso # (Auto) 0.0 10^3/uL (0.0-0.1) 03/10/20 05:30 Absolute Nucleated RBC 0.00 x10^3/uL 03/10/20 05:30 Nucleated RBC % 0.0 /100WBC 03/10/20 05:30 ESR 34 mm/Hr (0-30) H 03/10/20 05:30 PT 16.0 secs (9.9-12.6) H 03/09/20 19:59 INR 1.5 (0.8-1.2) H 03/09/20 19:59 Sodium 138 mmol/L (135-145) 03/10/20 05:30 Potassium 3.1 mmol/L (3.5-5.0) L 03/10/20 05:30 Chloride 103 mmol/L (101-111) 03/10/20 05:30 Carbon Dioxide 24 mmol/L (21-32) 03/10/20 05:30 Anion Gap 11.0 (6-13) 03/10/20 05:30 BUN 26 mg/dL (6-20) H 03/10/20 05:30 Creatinine 0.7 mg/dL (0.4-1.0) 03/10/20 05:30 Estimated GFR (MDRD) 81 (>89) L 03/10/20 05:30 Glucose 107 mg/dL (70-100) H 03/10/20 05:30 Estimat Average Glucose 111 mg/dL (70-100) H 03/10/20 05:30 Estimat Average Glucose 111 mg/dL (70-100) H 03/10/20 05:30 Hemoglobin A1c % 5.5 % (4.27-6.07) 03/10/20 05:30 Hemoglobin A1c % 5.5 % (4.27-6.07) 03/10/20 05:30 Calcium 8.4 mg/dL (8.5-10.3) L 03/10/20 05:30 Phosphorus 2.2 mg/dL (2.5-4.6) L 03/10/20 05:30 Magnesium 2.1 mg/dL (1.7-2.8) 03/10/20 05:30 Total Bilirubin 1.8 mg/dL (0.2-1.0) H 03/09/20 20:05 AST 80 IU/L (10-42) H 03/09/20 20:05 ALT 36 IU/L (10-60) 03/09/20 20:05 Alkaline Phosphatase 72 IU/L (42-121) 03/09/20 20:05 Troponin I High Sens 214.6 ng/L (2.3-14.8) H* 03/09/20 21:11 C-Reactive Protein 19.7 mg/dL (0-1.0) H 03/10/20 05:30 B-Natriuretic Peptide 86 pg/mL (5-100) 03/09/20 19:59 Total Protein 6.9 g/dL (6.7-8.2) 03/09/20 20:05 Albumin 3.3 g/dL (3.2-5.5) 03/09/20 20:05 Globulin 3.6 g/dL (2.1-4.2) 03/09/20 20:05 Albumin/Globulin Ratio 0.9 (1.0-2.2) L 03/09/20 20:05 Lipase 24 U/L (22-51) 03/09/20 20:05 Vitamin B12 246 pg/mL (180-914) 03/10/20 05:30 TSH 0.53 uIU/mL (0.34-5.60) 03/10/20 05:30 Urine Color YELLOW 03/09/20 22:00 Urine Clarity HAZY (CLEAR) 03/09/20 22:00 Urine pH 7.0 PH (5.0-7.5) 03/09/20 22:00 Ur Specific [place] 1.020 (1.002-1.030) 03/09/20 22:00 Urine Protein 30 mg/dL (NEGATIVE) H 03/09/20 22:00 Urine Glucose (UA) NEGATIVE mg/dL (NEGATIVE) 03/09/20 22:00 Urine Ketones 15 mg/dL (NEGATIVE) H 03/09/20 22:00 Urine Occult Blood MODERATE (NEGATIVE) H 03/09/20 22:00 Urine Nitrite NEGATIVE (NEGATIVE) 03/09/20 22:00 Urine Bilirubin NEGATIVE (NEGATIVE) 03/09/20 22:00 Urine Urobilinogen 0.2 (NORMAL) E.U./dL (NORMAL) 03/09/20 22:00 Ur Leukocyte Esterase NEGATIVE (NEGATIVE) 03/09/20 22:00 Urine RBC 6-10 /HPF (0-5) H 03/09/20 22:00 Urine WBC 0-3 /HPF (0-5) 03/09/20 22:00 Ur Squamous Epith Cells MOD Squamous (<= Few) H 03/09/20 22:00 Urine Bacteria Few /HPF (None Seen) 03/09/20 22:00 Ur Microscopic Review INDICATED 03/09/20 22:00 Urine Culture Comments NOT INDICATED 03/09/20 22:00 Nasal Adenovirus (PCR) NOT DETECTED 03/09/20 23:40 Nasal B. parapertussis DNA (PCR) NOT DETECTED 03/09/20 23:40 Nasal Coronavir 229E PCR NOT DETECTED 03/09/20 23:40 Nasal Coronavir HKU1 PCR NOT DETECTED 03/09/20 23:40 Nasal Coronavir NL63 PCR NOT DETECTED 03/09/20 23:40 Nasal Coronavir OC43 PCR NOT DETECTED 03/09/20 23:40 Nasal Enterovir/Rhinovir PCR NOT DETECTED 03/09/20 23:40 Nasal Influenza B PCR NOT DETECTED 03/09/20 23:40 Nasal Influenza A PCR NOT DETECTED 03/09/20 23:40 Nasal Parainfluen 1 PCR NOT DETECTED 03/09/20 23:40 Nasal Parainfluen 2 PCR NOT DETECTED 03/09/20 23:40 Nasal Parainfluen 3 PCR NOT DETECTED 03/09/20 23:40 Nasal Parainfluen 4 PCR NOT DETECTED 03/09/20 23:40 Nasal RSV (PCR) NOT DETECTED 03/09/20 23:40 Nasal B.pertussis DNA PCR NOT DETECTED 03/09/20 23:40 Nasal C.pneumoniae (PCR) NOT DETECTED 03/09/20 23:40 Jomar Human Metapneumo PCR NOT DETECTED 03/09/20 23:40 Nasal M.pneumoniae (PCR) NOT DETECTED 03/09/20 23:40 Nasal SARS-CoV-2 (PCR) NOT DETECTED 03/09/20 23:40 - Procedures Procedures: Procedures REPLACEMENT OF LEFT LENS WITH SYNTH SUB, PERC APPROACH (01/14/15) REPLACEMENT OF RIGHT LENS WITH SYNTH SUB, PERC APPROACH (02/11/15) ABX Reporting Has patient been on IV antibiotics over the past 48 hours?: Yes Current Medications - Current Medications Current Medications: Active Medications Acetaminophen (Tylenol) 650 mg PO Q4HR PRN PRN Reason: Pain 1 to 4 Last Admin: 03/10/20 09:40 Dose: 650 mg Documented by: Enoxaparin Sodium (Lovenox) 40 mg SUBQ DAILY [facility] Last Admin: 03/10/20 09:39 Dose: 40 mg Documented by: Sodium Chloride (Normal Saline 0.9%) 1,000 mls @ 100 mls/hr IV .Q10H [facility] Stop: 03/10/20 19:44 Last Admin: 03/10/20 10:20 Dose: 100 mls/hr Documented by: Cefazolin Sodium 1 gm/ Sodium (Chloride) 100 mls @ 200 mls/hr IV Q8H [facility] Last Infusion: 03/10/20 08:25 Dose: Infused Documented by: Non-Formulary Medication (Rosuvastatin Calcium [Crestor]) 1 tab PO DAILY [facility] Nystatin (Mycostatin Cream) 1 applic TOP BID [facility] Last Admin: 03/10/20 09:39 Dose: 1 applic Documented by: Ondansetron HCl (Zofran Odt) 4 mg TL Q6HR PRN PRN Reason: Nausea / Vomiting Ondansetron HCl (Zofran Inj) 4 mg IVP Q6HR PRN PRN Reason: Nausea / Vomiting Oxycodone HCl (Roxicodone) 5 mg PO Q4HR PRN PRN Reason: Pain 5 to 7 Last Admin: 03/10/20 09:40 Dose: 5 mg Documented by: Sodium Chloride (Normal Saline Flush 0.9%) 10 ml IVP PRN PRN PRN Reason: NEEDED PER PROVIDER ORDERS Sodium Chloride (Normal Saline Flush 0.9%) 10 ml IVP 0100,0900,1700 [facility] Last Admin: 03/10/20 09:40 Dose: Not Given Documented by: Sodium Phosphate (K-Phos Neutral) 250 mg PO TIDWM [facility] Buspirone HCl 1 tab PO DAILY 03/09/20 Losartan [Cozaar] 25 mg PO DAILY 03/09/20 Rosuvastatin Calcium [Crestor] 1 tab PO DAILY 03/09/20
[2020-03-10] MEDS ORDERED: AMINOPHYLLINE 500 MG/20 ML VIAL ONE (12:46)
[2020-03-10] MEDS ORDERED: REGADENOSON 0.4 MG/5 ML SYRINGE IVP ONE ×2 (12:46→16:47)
--- NOTE | 2020-03-10 15:31 | PHARMACY PROGRESS NOTE ---
- Best Possible Medication History Admit Date and Time: 03/09/20 7133 Processed by: Pharmacy Medication History completed: Yes Patient Interview: Completed (PATIENT INTERVIEWED BY BODY AND FENDER MECHANIC APPRENTICE. PATIENT ABLE TO CONFIRM HOME MEDICATIONS) Secondary Source(s): Pharmacy records (PATIENT INTERVIEWED BY BODY AND FENDER MECHANIC APPRENTICE. PATIENT ABLE TO CONFIRM HOME MEDICATIONS. ) As the person ultimately responsible for medication therapy, providers are able to order a medication from an existing home medication list in [facility] via the "Reconcile Routine" prior to Confirmation of that medication by administrative support clerk. Such practice is discouraged except when the physician, in their clinical judgment, deems that a medical need exists for a medication without regard to previous use.
--- NOTE | 2020-03-10 15:38 | CARDIAC PROCEDURE NOTE ---
DATE OF SERVICE: 03/10/2020 Physician: Karlee Wu MD INDICATION: Elevated troponin, chest pain. CARDIAC RISK FACTORS: Postmenopausal status, hypertension, morbid obesity. DESCRIPTION OF PROCEDURE: After signing informed consent, the patient underwent a Lexiscan pharmaceutical stress test with nuclear myocardial perfusion imaging. RESTING HEART RATE: 91. PEAK HEART RATE: 120. RESTING BLOOD PRESSURE: 119/88. PEAK BLOOD PRESSURE: 163/64. Lexiscan was infused per protocol. The patient had a mild headache and mild shortness of breath. She had no chest pain. Oxygen saturation was 96-98% on room air throughout the test. RESTING EKG: Normal sinus rhythm, left atrial enlargement, otherwise within normal limits. EKG AT PEAK: No new ST segment or T-wave changes. SUMMARY 1. Essentially normal resting electrocardiogram. 2. No significant symptoms developed during this pharmaceutical stress test. 3. No significant ST segment or T-wave changes developed during this pharmaceutical stress test. 4. Nuclear images showed: normal myocardial perfusion without scar or ischemia seen. IMPRESSION: 1. Normal stress test cc: SAMPSON Kelly TD: 03/10/2020 13:38 MTDD
--- NOTE | 2020-03-10 16:51 | Ultrasound Report ---
PROCEDURE: Ext Limited Non Vascular INDICATIONS: LT FOOT INFECTION, R/O ABSCESS TECHNIQUE: Real-time scanning was performed of the left foot in the area of maximal clinical concern with swelling, to assess for presence or absence of abscess, with image documentation. COMPARISON: None. FINDINGS: There is prominent edema within the subcutaneous fatty soft tissues in the area of maximal edema and swelling at the lateral left foot. Through this area no focal fluid collection is seen yvrose t would indicate presence of abscess formation. Rather, cellulitis appears present. IMPRESSION: Cellulitis without clearly identified evidence of abscess formation in the area of maxim al swelling and edema lateral left foot. Please note that MR scanning with contrast provides the most accurate assessment for detection of osteomyelitis and development of soft tissue abscess in this cl inical circumstance. Reviewed by: Amarjit Angel MD on 03/10/2020 4:49 PM PST Approved by: Amarjit Angel MD on 03/10/2020 4:49 PM PST Station ID: [id number]
[2020-03-10] MEDS: NEUTRA-PHOS 250 MG TABLET PO SCH (17:20)
--- NOTE | 2020-03-10 18:02 | Nuclear Medicine Report ---
PROCEDURE: Rest and pharmacological stress myocardial perfusion SPECT with gated imaging and ejection fraction INDICATIONS: elevated troponin RADIOPHARMACEUTICAL: 16.4 mCi Tc-99m Myoview IV at rest and 48.2 mCi Tc-99m Myoview IV at peak exerc ise. [id number] was performed. TECHNIQUE: Radiopharmaceutical was injected at peak stress test, and also at rest. SPECT images wer e obtained. SPECT myocardial perfusion images were displayed in short axis, horizontal long axis, an d vertical long axis views. Gated images were reviewed using [employer] software. COMPARISON: None available. FINDINGS: Raw data: There is good myocardial labeling by radiotracer. No significant motion artifacts. Lung- to-heart ratio is 0.36 (normal is less than 0.38 for tetrafosmin tracer). Left ventricle function: Gated images demonstrate normal left ventricle wall thickening. No segment al wall motion abnormality. No transient ischemic dilation; TID is 1.02 (normal less than 1.3). The left ventricle resting end-diastolic volume is normal. Left ventricle stress ejection fraction is > 70%; normal values are above 45%. Myocardial perfusion: There is normal distribution of activity in the left and right ventricular evan cardium. No fixed or reversible perfusion defects. IMPRESSION: 1. Normal myocardial perfusion images. No perfusion defects to suggest myocardial ischemia or infarct ion. 2. Normal left ventricular volume and systolic function. 3. Please correlate with stress EKG report. PQRS ATTESTATIONS: Measure 322 - Is this imaging test primarily performed on a low-risk surgery patient for preoperative evaluation within 30 days preceding their low-risk non-cardiac surgery? Low-risk surgery is defined as cardiac or myocardial infarction less than 1%, including (but not limited to) endoscopic pr ocedures, superficial procedures, cataract surgery, and excisional breast surgery: Answer: No Measure 323 - Is this imaging test performed primarily for the monitoring of an asymptomatic patient who had percutaneous coronary intervention on the visit date or within 2 years of the visit date? An swer: No Measure 324 - Is this imaging test performed primarily for the initial detection and risk assessment on an asymptomatic, low coronary heart disease patient? Low CHD risk definition = clinicians should consider the maximum number of available patient factors used to estimate risk based on [place] (A TP III criteria), typically age, gender, diabetes, smoking status, and use of blood pressure medicati on, and integrate age appropriate estimates for missing elements, such as LDL or standard blood press ure. Answer: No Reviewed by: Raoul Cheng MD on 03/10/2020 6:01 PM PST Approved by: Raoul Cheng MD on 03/10/2020 6:01 PM PST Station ID: [id number]
[2020-03-10] MEDS: ATORVASTATIN 10 MG TABLET PO SCH (20:11)
[2020-03-11 05:57] LABS: BASOPHILS % (AUTO) 0.4 %; EOSINOPHILS # (AUTO) 0.1 10^3/uL (0.0-0.7); EOSINOPHILS % (AUTO) 0.5 %; HGB - HEMOGLOBIN 12.5 g/dL (12.0-16.0); LYMPHOCYTES # (AUTO) 1.5 10^3/uL (1.5-3.5); LYMPHOCYTES % (AUTO) 15.9 %; MEAN CORPUSCULAR HEMOGLOBIN 31.6 pg (27.0-31.0); MEAN CORPUSCULAR HGB CONC 32.7 g/dL (32.0-36.0); MEAN CORPUSCULAR VOLUME 96.5 fL (81.0-99.0); MEAN PLATELET VOLUME 11.5 fL (7.9-10.8); MONOCYTES # (AUTO) 0.9 10^3/uL (0.0-1.0); MONOCYTES % (AUTO) 8.9 %; NEUTROPHILS # (AUTO) 7.1 10^3/uL (1.5-6.6); NEUTROPHILS % (AUTO) 73.8 %; PLT - PLATELET COUNT 146 10^3/uL (130-450); RED BLOOD COUNT 3.96 10^6/uL (4.20-5.40); RED CELL DISTRIBUTION WIDTH 12.8 % (12.0-15.0); WHITE BLOOD COUNT 9.6 x10^3/uL (4.8-10.8)
[2020-03-11 06:23] LABS: RHEUMATOID FACTOR NEGATIVE (Negative)
[2020-03-11 06:25] LABS: ALBUMIN 3.1 g/dL (3.2-5.5); BILIRUBIN,TOTAL 1.3 mg/dL (0.2-1.0); CALCIUM 8.3 mg/dL (8.5-10.3); CREATININE 0.6 mg/dL (0.4-1.0); CRP - C-REACTIVE PROTEIN 15.5 mg/dL (0-1.0); TOTAL PROTEIN 6.1 g/dL (6.7-8.2)
[2020-03-11] MEDS: NEUTRA-PHOS 250 MG TABLET PO SCH ×3 (07:54→16:36)
[2020-03-11] MEDS: ceFAZolin 1 GM in SODIUM CHLORIDE 0.9% MINIBAG 100 ML IV SCH (07:54)
[2020-03-11] MEDS: MULTIVITAMIN W/MINERALS TABLET PO SCH (07:54)
[2020-03-11] MEDS ORDERED: LACTOBACILLUS RHAMNOSUS GG CAPSULE PO SCH (09:00)
[2020-03-11] MEDS: ENOXAPARIN 40 MG/0.4 ML SYRINGE SUBQ SCH (09:27)
[2020-03-11] MEDS: polyethylene glycoL 3350 17 GM PACKET PO SCH (09:27)
[2020-03-11] MEDS: NYSTATIN CREAM 15 GM TUBE TOP SCH ×2 (09:27→22:33)
[2020-03-11] MEDS: SODIUM CHLORIDE FLUSH 0.9% 10 ML SYRINGE IVP SCH ×2 (09:28→16:36)
[2020-03-11] MEDS ORDERED: BENZOCAINE/MENTHOL LOZENGE MM PRN (10:23)
[2020-03-11] MEDS ORDERED: ceFAZolin 2 GM in SODIUM CHLORIDE 0.9% MINIBAG 100 ML IV SCH (11:00)
[2020-03-11] MEDS ORDERED: BENZOCAINE/MENTHOL LOZENGE MM ONE (11:00)
[2020-03-11] MEDS: NICOTINE 14 MG PATCH TOP SCH (11:22)
[2020-03-11] MEDS ORDERED: SODIUM CHLORIDE 0.9% MINIBAG 100 ML IV ONE (11:26)
--- NOTE | 2020-03-11 14:37 | PROVIDER PROGRESS NOTE ---
Assessment/Plan - Problem List (1) Bacteremia Assessment/Plan: 03/11 Patient had 1 tubal blood culture is positive for gram-positive cocci, sensitivity is pending. But the patient has no fever, WBC become normal, CRP treated down, will repeat blood culture, hold ancef and change to Vancomycin, Follow-up sensitivity study (2) Cellulitis 1125, patient left lower extremity cellulitis but only has some slight improvement, still has erythema, and swelling, and warmth clinically. But the patient WBC become normal, CRP continue trending down. Ultrasound did not show pus or abscess. blood culture Sensitivity study still pending. Switch antibiotics from Ancef to vancomycin. 03/10 improved. Her left lower extremity erythema is reduced, tenderness in the left feet also reduced. WBC is reduced, patient has no fever, blood culture is pending. Continue intravenous antibiotics, order ultrasound for left feet to rule out abscess or pus. Recommend podiatry followup and she has appt 03/16. (3) Elevated troponin Conclusion/Plan: 1125,Patient has no chest med at all. Patient echo is unremarkable, stress test also is unremarkable. Discussed the test result with the patient Patient denies chest pain, patient is hemodynamic stable now. Repeated troponin is flat. Emergency room physician has discussed with cardiology. Does not feel there is an NSTEMI in place. As such the patient will be trended for her troponins. We will plan for nuclear medicine stress test and echocardiogram.Patient has stress test today, results is pending (4) History of fall Conclusion/Plan: we will PT/OT evaluate and treat for pt. Present as part of review of systems in the electronic medical record off and on since 2012. No specific cause. 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 (7)weakness Consult with physical therapist and occupational therapist, order out of bed tid (2) Cellulitis Qualifiers: Site of cellulitis: extremity Site of cellulitis of extremity: lower extremity Laterality: left Qualified Code(s): L03.116 - Cellulitis of left lower limb - Current Meds Current Meds: Current Medications Generic Name Dose Route Start Last Admin Trade Name Freq PRN Reason Stop Dose Admin Acetaminophen 650 mg 03/09/20 23:12 03/10/20 09:40 Tylenol PO 650 mg Q4HR PRN Administration Pain 1 to 4 Atorvastatin Calcium 10 mg 03/10/20 21:00 03/10/20 20:11 Lipitor PO 10 mg QPM JUANITA Administration Enoxaparin Sodium 40 mg 03/10/20 09:00 03/11/20 09:27 Lovenox SUBQ 40 mg DAILY JUANITA Administration Cefazolin Sodium 2 gm/ Sodium 100 mls @ 200 mls/hr 03/11/20 11:00 03/11/20 12:00 Chloride IV Infused Q8H JUANITA Infusion Multivitamins/Minerals 1 tab 03/11/20 08:00 03/11/20 07:54 Theragran M PO 1 tab DAILYWM JUANITA Administration Nicotine 1 patch 03/11/20 11:00 03/11/20 11:22 Nicoderm TOP 1 patch DAILY JUANITA Administration Nystatin 1 applic 03/10/20 02:00 03/11/20 09:27 Mycostatin Cream TOP 1 applic BID JUANITA Administration Oxycodone HCl 5 mg 03/09/20 23:12 03/10/20 09:40 Roxicodone PO 5 mg Q4HR PRN Administration Pain 5 to 7 Polyethylene Glycol 17 gm 03/11/20 09:00 03/11/20 09:27 Miralax PO 17 gm DAILY JUANITA Administration Sodium Chloride 10 ml 03/10/20 01:00 03/11/20 09:28 Normal Saline Flush 0.9% IVP 10 ml 0100,0900,1700 JUANITA Administration Sodium Phosphate 250 mg 03/10/20 17:00 03/11/20 11:28 K-Phos Neutral PO 250 mg TIDWM JUANITA Administration - Lab Result Fish Bone Diagrams: 03/11/20 05:17 03/11/20 05:11 - Additional Planning My Orders: My Active Orders 03/10/20 17:00 Neutra-Phos [K-Phos Neutral] 250 mg PO TIDWM 03/10/20 21:00 Atorvastatin [Lipitor] 10 mg PO QPM 03/11/20 08:00 Multivitamin W/Minerals [Theragran M] 1 tab PO DAILYWM 03/11/20 10:23 Benzocaine/Menthol [Cepacol] 1 lozenge MM Q2HR PRN 03/11/20 11:00 Blood Culture [CULTURE, BLOOD #1] [RM] Urgent Blood Culture [CULTURE, BLOOD #2] [RM] Urgent Nicotine 14 mg Patch [Nicoderm] 1 patch TOP DAILY ceFAZolin [Ancef] 2 gm Sodium Chloride 0.9% Minibag [Normal Saline 0.9% Minibag] 100 ml IV Q8H 03/11/20 17:00 Saccharomyces Boulardii [Florastor] 250 mg PO BIDWM 03/12/20 05:00 CMP [COMPREHENSIVE METABOLIC PANEL] [CHEM] DAILYLAB CRP - C-REACTIVE PROTEIN [CHEM] DAILYLAB 03/13/20 05:00 CMP [COMPREHENSIVE METABOLIC PANEL] [CHEM] DAILYLAB CRP - C-REACTIVE PROTEIN [CHEM] DAILYLAB 03/14/20 05:00 CMP [COMPREHENSIVE METABOLIC PANEL] [CHEM] DAILYLAB CRP - C-REACTIVE PROTEIN [CHEM] DAILYLAB 03/15/20 05:00 CMP [COMPREHENSIVE METABOLIC PANEL] [CHEM] DAILYLAB CRP - C-REACTIVE PROTEIN [CHEM] DAILYLAB Subjective - Subjective Patient Reports: Feeling Better Objective Vital Signs: Vital Signs - 24 hr 03/10/20 03/10/20 03/11/20 15:56 21:00 00:18 Temperature 36.7 C 36.8 C 37.0 C Heart Rate [ 97 Brachial] Heart Rate [ 89 94 Radial] Respiratory 20 20 20 Rate Blood Pressure 127/62 112/55 L 138/70 H [Right Radial artery] O2 Saturation 98 93 93 03/11/20 08:51 Temperature 37.3 C Heart Rate [ Brachial] Heart Rate [ 89 Radial] Respiratory 18 Rate Blood Pressure 109/65 [Right Radial artery] O2 Saturation 94 Oxygen O2 Source Room air I&O (Last 24 Hrs): Intake and Output Totals x24h 03/09/20 03/10/20 03/11/20 23:59 23:59 23:59 Intake Total 500 3266.000 900.000 Output Total 893 934 1233 Balance -50 2766.000 -250.000 General: Alert, Oriented x3, Cooperative, No acute distress HEENT: Atraumatic Neck: Supple Lymphatic: no adenopathy Neuro: Alert, Non Focal, Oriented Times 3 Cardiovascular: Regular rate, Normal S1, Normal S2 Respiratory: Chest non-tender, No respiratory distress, Breath sounds nml Abdomen: Normal bowel sounds, Soft Extremities: Other (erthema and swelling at left lower extremity is slight improved.) - Results Results: Laboratory Results WBC 9.6 x10^3/uL (4.8-10.8) 03/11/20 05:17 RBC 3.96 10^6/uL (4.20-5.40) L 03/11/20 05:17 Hgb 12.5 g/dL (12.0-16.0) 03/11/20 05:17 Hct 38.2 % (37.0-47.0) 03/11/20 05:17 MCV 96.5 fL (81.0-99.0) 03/11/20 05:17 MCH 31.6 pg (27.0-31.0) H 03/11/20 05:17 MCHC 32.7 g/dL (32.0-36.0) 03/11/20 05:17 RDW 12.8 % (12.0-15.0) 03/11/20 05:17 Plt Count 146 10^3/uL (130-450) 03/11/20 05:17 MPV 11.5 fL (7.9-10.8) H 03/11/20 05:17 Neut # (Auto) 7.1 10^3/uL (1.5-6.6) H 03/11/20 05:17 Lymph # (Auto) 1.5 10^3/uL (1.5-3.5) 03/11/20 05:17 [place] # (Auto) 0.9 10^3/uL (0.0-1.0) 03/11/20 05:17 Eos # (Auto) 0.1 10^3/uL (0.0-0.7) 03/11/20 05:17 Baso # (Auto) 0.0 10^3/uL (0.0-0.1) 03/11/20 05:17 Absolute Nucleated RBC 0.00 x10^3/uL 03/11/20 05:17 Nucleated RBC % 0.0 /100WBC 03/11/20 05:17 ESR 34 mm/Hr (0-30) H 03/10/20 05:30 PT 16.0 secs (9.9-12.6) H 03/09/20 19:59 INR 1.5 (0.8-1.2) H 03/09/20 19:59 Sodium 138 mmol/L (135-145) 03/11/20 05:11 Potassium 3.5 mmol/L (3.5-5.0) 03/11/20 05:11 Chloride 105 mmol/L (101-111) 03/11/20 05:11 Carbon Dioxide 24 mmol/L (21-32) 03/11/20 05:11 Anion Gap 9.0 (6-13) 03/11/20 05:11 BUN 23 mg/dL (6-20) H 03/11/20 05:11 Creatinine 0.6 mg/dL (0.4-1.0) 03/11/20 05:11 Estimated GFR (MDRD) 97 (>89) 03/11/20 05:11 Glucose 100 mg/dL (70-100) 03/11/20 05:11 Estimat Average Glucose 111 mg/dL (70-100) H 03/10/20 05:30 Estimat Average Glucose 111 mg/dL (70-100) H 03/10/20 05:30 Hemoglobin A1c % 5.5 % (4.27-6.07) 03/10/20 05:30 Hemoglobin A1c % 5.5 % (4.27-6.07) 03/10/20 05:30 Calcium 8.3 mg/dL (8.5-10.3) L 03/11/20 05:11 Phosphorus 2.2 mg/dL (2.5-4.6) L 03/10/20 05:30 Magnesium 2.1 mg/dL (1.7-2.8) 03/10/20 05:30 Total Bilirubin 1.3 mg/dL (0.2-1.0) H 03/11/20 05:11 AST 95 IU/L (10-42) H 03/11/20 05:11 ALT 37 IU/L (10-60) 03/11/20 05:11 Alkaline Phosphatase 63 IU/L (42-121) 03/11/20 05:11 Troponin I High Sens 214.6 ng/L (2.3-14.8) H* 03/09/20 21:11 C-Reactive Protein 15.5 mg/dL (0-1.0) H 03/11/20 05:11 B-Natriuretic Peptide 86 pg/mL (5-100) 03/09/20 19:59 Total Protein 6.1 g/dL (6.7-8.2) L 03/11/20 05:11 Albumin 3.1 g/dL (3.2-5.5) L 03/11/20 05:11 Globulin 3.0 g/dL (2.1-4.2) 03/11/20 05:11 Albumin/Globulin Ratio 1.0 (1.0-2.2) 03/11/20 05:11 Lipase 24 U/L (22-51) 03/09/20 20:05 Vitamin B12 246 pg/mL (180-914) 03/10/20 05:30 TSH 0.53 uIU/mL (0.34-5.60) 03/10/20 05:30 Urine Color YELLOW 03/09/20 22:00 Urine Clarity HAZY (CLEAR) 03/09/20 22:00 Urine pH 7.0 PH (5.0-7.5) 03/09/20 22:00 Ur Specific [place] 1.020 (1.002-1.030) 03/09/20 22:00 Urine Protein 30 mg/dL (NEGATIVE) H 03/09/20 22:00 Urine Glucose (UA) NEGATIVE mg/dL (NEGATIVE) 03/09/20 22:00 Urine Ketones 15 mg/dL (NEGATIVE) H 03/09/20 22:00 Urine Occult Blood MODERATE (NEGATIVE) H 03/09/20 22:00 Urine Nitrite NEGATIVE (NEGATIVE) 03/09/20 22:00 Urine Bilirubin NEGATIVE (NEGATIVE) 03/09/20 22:00 Urine Urobilinogen 0.2 (NORMAL) E.U./dL (NORMAL) 03/09/20 22:00 Ur Leukocyte Esterase NEGATIVE (NEGATIVE) 03/09/20 22:00 Urine RBC 6-10 /HPF (0-5) H 03/09/20 22:00 Urine WBC 0-3 /HPF (0-5) 03/09/20 22:00 Ur Squamous Epith Cells MOD Squamous (<= Few) H 03/09/20 22:00 Urine Bacteria Few /HPF (None Seen) 03/09/20 22:00 Ur Microscopic Review INDICATED 03/09/20 22:00 Urine Culture Comments NOT INDICATED 03/09/20 22:00 Nasal Adenovirus (PCR) NOT DETECTED 03/09/20 23:40 Nasal B. parapertussis DNA (PCR) NOT DETECTED 03/09/20 23:40 Nasal Coronavir 229E PCR NOT DETECTED 03/09/20 23:40 Nasal Coronavir HKU1 PCR NOT DETECTED 03/09/20 23:40 Nasal Coronavir NL63 PCR NOT DETECTED 03/09/20 23:40 Nasal Coronavir OC43 PCR NOT DETECTED 03/09/20 23:40 Nasal Enterovir/Rhinovir PCR NOT DETECTED 03/09/20 23:40 Nasal Influenza B PCR NOT DETECTED 03/09/20 23:40 Nasal Influenza A PCR NOT DETECTED 03/09/20 23:40 Nasal Parainfluen 1 PCR NOT DETECTED 03/09/20 23:40 Nasal Parainfluen 2 PCR NOT DETECTED 03/09/20 23:40 Nasal Parainfluen 3 PCR NOT DETECTED 03/09/20 23:40 Nasal Parainfluen 4 PCR NOT DETECTED 03/09/20 23:40 Nasal RSV (PCR) NOT DETECTED 03/09/20 23:40 Nasal B.pertussis DNA PCR NOT DETECTED 03/09/20 23:40 Nasal C.pneumoniae (PCR) NOT DETECTED 03/09/20 23:40 Jomar Human Metapneumo PCR NOT DETECTED 03/09/20 23:40 Nasal M.pneumoniae (PCR) NOT DETECTED 03/09/20 23:40 Nasal SARS-CoV-2 (PCR) NOT DETECTED 03/09/20 23:40 Rheumatoid Factor NEGATIVE (Negative) 03/11/20 05:11 - Procedures Procedures: Procedures REPLACEMENT OF LEFT LENS WITH SYNTH SUB, PERC APPROACH (01/14/15) REPLACEMENT OF RIGHT LENS WITH SYNTH SUB, PERC APPROACH (02/11/15) ABX Reporting Has patient been on IV antibiotics over the past 48 hours?: Yes Current Medications - Current Medications Current Medications: Active Medications Acetaminophen (Tylenol) 650 mg PO Q4HR PRN PRN Reason: Pain 1 to 4 Last Admin: 03/10/20 09:40 Dose: 650 mg Documented by: Atorvastatin Calcium (Lipitor) 10 mg PO QPM [facility] Last Admin: 03/10/20 20:11 Dose: 10 mg Documented by: Enoxaparin Sodium (Lovenox) 40 mg SUBQ DAILY [facility] Last Admin: 03/11/20 09:27 Dose: 40 mg Documented by: Vancomycin HCl 2 gm/ Sodium (Chloride) 500 mls @ 250 mls/hr IV ONCE ONE Stop: 03/11/20 17:59 Last Admin: 03/11/20 15:38 Dose: 250 mls/hr Documented by: Vancomycin HCl 1 gm/Vancomycin HCl 500 mg/ Sodium Chloride 500 mls @ 250 mls/hr IV Q12H [facility] Multivitamins/Minerals (Theragran M) 1 tab PO DAILYWM [facility] Last Admin: 03/11/20 07:54 Dose: 1 tab Documented by: Nicotine (Nicoderm) 1 patch TOP DAILY [facility] Last Admin: 03/11/20 11:22 Dose: 1 patch Documented by: Nystatin (Mycostatin Cream) 1 applic TOP BID [facility] Last Admin: 03/11/20 09:27 Dose: 1 applic Documented by: Ondansetron HCl (Zofran Odt) 4 mg TL Q6HR PRN PRN Reason: Nausea / Vomiting Ondansetron HCl (Zofran Inj) 4 mg IVP Q6HR PRN PRN Reason: Nausea / Vomiting Oxycodone HCl (Roxicodone) 5 mg PO Q4HR PRN PRN Reason: Pain 5 to 7 Last Admin: 03/10/20 09:40 Dose: 5 mg Documented by: Polyethylene Glycol (Miralax) 17 gm PO DAILY [facility] Last Admin: 03/11/20 09:27 Dose: 17 gm Documented by: Saccharomyces Boulardii (Florastor) 250 mg PO BIDWM [facility] Last Admin: 03/11/20 16:36 Dose: 250 mg Documented by: Sodium Chloride (Normal Saline Flush 0.9%) 10 ml IVP PRN PRN PRN Reason: NEEDED PER PROVIDER ORDERS Sodium Chloride (Normal Saline Flush 0.9%) 10 ml IVP 0100,0900,1700 [facility] Last Admin: 03/11/20 16:36 Dose: 10 ml Documented by: Sodium Phosphate (K-Phos Neutral) 250 mg PO TIDWM [facility] Last Admin: 03/11/20 16:36 Dose: 250 mg Documented by: Throat Lozenges (Cepacol) 1 lozenge MM Q2HR PRN PRN Reason: Mouth Sore Pain Losartan [Cozaar] 25 mg PO DAILY 03/09/20 Rosuvastatin Calcium [Crestor] 5 mg PO DAILY 03/09/20 buPROPion HCl [Bupropion Xl] 150 mg PO DAILY 03/10/20
[2020-03-11] MEDS ORDERED: VANCOMYCIN INJ 2 GM in SODIUM CHLORIDE 0.9% 500 ML IV ONE (16:00)
[2020-03-11] MEDS: SACCHAROMYCES BOULARDII 250 MG CAPSULE PO SCH (16:36)
[2020-03-11] MEDS: ATORVASTATIN 10 MG TABLET PO SCH (22:33)
[2020-03-11] MEDS: ACETAMINOPHEN 325 MG TABLET PO PRN (22:42)
[2020-03-11] MEDS: oxyCODONE 5 MG TABLET PO PRN (22:42)
[2020-03-12] MEDS: VANCOMYCIN INJ 1 GM, VANCOMYCIN INJ 500 MG in SODIUM CHLORIDE 0.9% 500 ML IV SCH ×2 (04:50→16:15)
[2020-03-12 05:04] LABS: BASOPHILS # (AUTO) 0.1 10^3/uL (0.0-0.1); BASOPHILS % (AUTO) 0.8 %; EOSINOPHILS # (AUTO) 0.2 10^3/uL (0.0-0.7); EOSINOPHILS % (AUTO) 2.2 %; LYMPHOCYTES # (AUTO) 1.9 10^3/uL (1.5-3.5); LYMPHOCYTES % (AUTO) 25.5 %; MEAN CORPUSCULAR HEMOGLOBIN 31.7 pg (27.0-31.0); MEAN CORPUSCULAR HGB CONC 32.9 g/dL (32.0-36.0); MEAN CORPUSCULAR VOLUME 96.3 fL (81.0-99.0); MEAN PLATELET VOLUME 11.9 fL (7.9-10.8); MONOCYTES # (AUTO) 0.9 10^3/uL (0.0-1.0); MONOCYTES % (AUTO) 11.8 %; NEUTROPHILS # (AUTO) 4.5 10^3/uL (1.5-6.6); PLT - PLATELET COUNT 143 10^3/uL (130-450); RED BLOOD COUNT 3.79 10^6/uL (4.20-5.40); RED CELL DISTRIBUTION WIDTH 12.9 % (12.0-15.0); WHITE BLOOD COUNT 7.6 x10^3/uL (4.8-10.8)
[2020-03-12] MEDS: SODIUM CHLORIDE FLUSH 0.9% 10 ML SYRINGE IVP SCH ×3 (05:12→16:15)
[2020-03-12 05:22] LABS: ALBUMIN 2.8 g/dL (3.2-5.5); BILIRUBIN,TOTAL 1.2 mg/dL (0.2-1.0); CALCIUM 8.3 mg/dL (8.5-10.3); CREATININE 0.6 mg/dL (0.4-1.0); CRP - C-REACTIVE PROTEIN 7.9 mg/dL (0-1.0); TOTAL PROTEIN 5.7 g/dL (6.7-8.2)
[2020-03-12] MEDS ORDERED: POTASSIUM CHLORIDE 20 MEQ TABLET PO ONE (08:20)
[2020-03-12] MEDS: SACCHAROMYCES BOULARDII 250 MG CAPSULE PO SCH ×2 (09:02→16:15)
[2020-03-12] MEDS: MULTIVITAMIN W/MINERALS TABLET PO SCH (09:02)
[2020-03-12] MEDS: NEUTRA-PHOS 250 MG TABLET PO SCH ×3 (09:02→16:15)
[2020-03-12] MEDS: ENOXAPARIN 40 MG/0.4 ML SYRINGE SUBQ SCH (09:05)
[2020-03-12] MEDS: NYSTATIN CREAM 15 GM TUBE TOP SCH ×2 (09:06→21:18)
[2020-03-12] MEDS: polyethylene glycoL 3350 17 GM PACKET PO SCH (09:07)
[2020-03-12] MEDS: NICOTINE 14 MG PATCH TOP SCH (09:07)
--- NOTE | 2020-03-12 11:41 | PROVIDER PROGRESS NOTE ---
Assessment/Plan - Problem List (1) Bacteremia Assessment/Plan: 1126, repeat blood cultures still show 1 tubal with a gram-positive cocci, Sensitivity and which bacteria is pending. Previous blood cultures show 1 tubal with Staphylococcus Anirudh SSPhominis which is coagulase negative bacteria, likely from contamination as well. will continue treated with Vancomycin and waiting for finally blood culture and sensitivity study. 03/11 Patient had 1 tubal blood culture is positive for gram-positive cocci, sensitivity is pending. But the patient has no fever, WBC become normal, CRP treated down, will repeat blood culture, hold ancef and change to Vancomycin, Follow-up sensitivity study (2) Cellulitis 1126, clinically patient is significantly improved. Her feet and ankle area cellulitis is significant improved but upper leg cellulitis is still present, Erythema and warmth are at present. pt denies pain. Continue antibiotics Vancomycin, continue pathology laboratory director 1125, patient left lower extremity cellulitis but only has some slight improvement, still has erythema, and swelling, and warmth clinically. But the patient WBC become normal, CRP continue trending down. Ultrasound did not show pus or abscess. blood culture Sensitivity study still pending. Switch antibio tics from Ancef to vancomycin. 03/10 improved. Her left lower extremity erythema is reduced, tenderness in the left feet also reduced. WBC is reduced, patient has no fever, blood culture is pending. Continue intravenous antibiotics, order ultrasound for left feet to rule out abscess or pus. Recommend podiatry followup and she has appt 03/16. (3) Elevated troponin Conclusion/Plan: 1125,Patient has no chest med at all. Patient echo is unremarkable, stress test also is unremarkable. Discussed the test result with the patient Patient denies chest pain, patient is hemodynamic stable now. Repeated troponin is flat. Emergency room physician has discussed with cardiology. Does not feel there is an NSTEMI in place. As such the patient will be trended for her troponins. We will plan for nuclear medicine stress test and echocardiogram.Patient has stress test today, results is pending (4) History of fall Conclusion/Plan: we will PT/OT evaluate and treat for pt. Present as part of review of systems in the electronic medical record off and on since 2012. No specific cause. She does not have a history of peripheral neuropathy, stroke causing cerebellar ataxia, alcohol abuse, and patient is not aware of any specific problem (5)obese discuss loss weight for pt, consult with e merchant (6)dehydration Patient had slightly elevated creatinine and BUN, dry mouth, patient was given intravenous IV fluids, will pathology laboratory director patient (7)weakness 1127, physical therapist and occupational therapist recommended patient DC to SNF, consult with social work for disposition Consult with physical therapist and occupational therapist, order out of bed tid (2) Cellulitis Qualifiers: Site of cellulitis: extremity Site of cellulitis of extremity: lower extremity Laterality: left Qualified Code(s): L03.116 - Cellulitis of left lower limb - Current Meds Current Meds: Current Medications Generic Name Dose Route Start Last Admin Trade Name Freq PRN Reason Stop Dose Admin Acetaminophen 650 mg 03/09/20 23:12 03/11/20 22:42 Tylenol PO 650 mg Q4HR PRN Administration Pain 1 to 4 Atorvastatin Calcium 10 mg 03/10/20 21:00 03/11/20 22:33 Lipitor PO 10 mg QPM JUANITA Administration Enoxaparin Sodium 40 mg 03/10/20 09:00 03/12/20 09:05 Lovenox SUBQ 40 mg DAILY JUANITA Administration Vancomycin HCl 1 gm/ 500 mls @ 250 mls/hr 03/12/20 04:00 03/12/20 06:50 Vancomycin HCl 500 mg/ Sodium IV Infused Chloride Q12H JUANITA Infusion Multivitamins/Minerals 1 tab 03/11/20 08:00 03/12/20 09:02 Theragran M PO 1 tab DAILYWM JUANITA Administration Nicotine 1 patch 03/11/20 11:00 03/12/20 09:07 Nicoderm TOP 1 patch DAILY JUANITA Administration Nystatin 1 applic 03/10/20 02:00 03/12/20 09:06 Mycostatin Cream TOP 1 applic BID JUANITA Administration Oxycodone HCl 5 mg 03/09/20 23:12 03/11/20 22:42 Roxicodone PO 5 mg Q4HR PRN Administration Pain 5 to 7 Polyethylene Glycol 17 gm 03/11/20 09:00 03/12/20 09:07 Miralax PO Not Given DAILY JUANITA Saccharomyces Boulardii 250 mg 03/11/20 17:00 03/12/20 09:02 Florastor PO 250 mg BIDWM JUANITA Administration Sodium Chloride 10 ml 03/10/20 01:00 03/12/20 09:07 Normal Saline Flush 0.9% IVP 10 ml 0100,0900,1700 JUANITA Administration Sodium Phosphate 250 mg 03/10/20 17:00 03/12/20 09:02 K-Phos Neutral PO 250 mg TIDWM JUANITA Administration - Lab Result Fish Bone Diagrams: 03/12/20 04:40 03/12/20 04:40 - Additional Planning My Orders: My Active Orders 03/11/20 11:00 Blood Culture [CULTURE, BLOOD #1] [RM] Urgent Blood Culture [CULTURE, BLOOD #2] [RM] Urgent Nicotine 14 mg Patch [Nicoderm] 1 patch TOP DAILY 03/11/20 16:34 Out of bed 3+ hours today [RC] TID 03/11/20 17:00 Saccharomyces Boulardii [Florastor] 250 mg PO BIDWM 03/12/20 04:00 Vancomycin Inj [Vancomycin] 1 gm Vancomycin Inj 500 mg Sodium Chloride 0.9% [Normal Saline 0.9%] 500 ml IV Q12H 03/13/20 05:00 CMP [COMPREHENSIVE METABOLIC PANEL] [CHEM] DAILYLAB CRP - C-REACTIVE PROTEIN [CHEM] DAILYLAB 03/14/20 05:00 CMP [COMPREHENSIVE METABOLIC PANEL] [CHEM] DAILYLAB CRP - C-REACTIVE PROTEIN [CHEM] DAILYLAB 03/15/20 05:00 CMP [COMPREHENSIVE METABOLIC PANEL] [CHEM] DAILYLAB CRP - C-REACTIVE PROTEIN [CHEM] DAILYLAB Subjective - Subjective Patient Reports: Feeling Better Objective Vital Signs: Vital Signs - 24 hr 03/11/20 03/12/20 03/12/20 15:55 02:11 06:00 Temperature 36.9 C 36.7 C 36.8 C Heart Rate [ 86 Brachial] Heart Rate [ 91 83 Radial] Respiratory 20 20 18 Rate Blood Pressure 130/84 H 123/64 144/90 H [Right Radial artery] O2 Saturation 96 95 97 Oxygen O2 Source Room air I&O (Last 24 Hrs): Intake and Output Totals x24h 03/10/20 03/11/20 03/12/20 23:59 23:59 23:59 Intake Total 3266.000 2015.000 980 Output Total 500 1250 Balance 2766.000 765.000 980 General: Alert, Oriented x3, Cooperative, No acute distress HEENT: Atraumatic Neck: Supple Lymphatic: no adenopathy Neuro: Alert, Non Focal, Oriented Times 3 Cardiovascular: Regular rate, Normal S1, Normal S2 Respiratory: Chest non-tender, No respiratory distress, Breath sounds nml Abdomen: Normal bowel sounds, Soft, No tenderness - Results Results: Laboratory Results WBC 7.6 x10^3/uL (4.8-10.8) 03/12/20 04:40 RBC 3.79 10^6/uL (4.20-5.40) L 03/12/20 04:40 Hgb 12.0 g/dL (12.0-16.0) 03/12/20 04:40 Hct 36.5 % (37.0-47.0) L 03/12/20 04:40 MCV 96.3 fL (81.0-99.0) 03/12/20 04:40 MCH 31.7 pg (27.0-31.0) H 03/12/20 04:40 MCHC 32.9 g/dL (32.0-36.0) 03/12/20 04:40 RDW 12.9 % (12.0-15.0) 03/12/20 04:40 Plt Count 143 10^3/uL (130-450) 03/12/20 04:40 MPV 11.9 fL (7.9-10.8) H 03/12/20 04:40 Neut # (Auto) 4.5 10^3/uL (1.5-6.6) 03/12/20 04:40 Lymph # (Auto) 1.9 10^3/uL (1.5-3.5) 03/12/20 04:40 [place] # (Auto) 0.9 10^3/uL (0.0-1.0) 03/12/20 04:40 Eos # (Auto) 0.2 10^3/uL (0.0-0.7) 03/12/20 04:40 Baso # (Auto) 0.1 10^3/uL (0.0-0.1) 03/12/20 04:40 Absolute Nucleated RBC 0.00 x10^3/uL 03/12/20 04:40 Nucleated RBC % 0.0 /100WBC 03/12/20 04:40 ESR 34 mm/Hr (0-30) H 03/10/20 05:30 PT 16.0 secs (9.9-12.6) H 03/09/20 19:59 INR 1.5 (0.8-1.2) H 03/09/20 19:59 Sodium 138 mmol/L (135-145) 03/12/20 04:40 Potassium 3.3 mmol/L (3.5-5.0) L 03/12/20 04:40 Chloride 106 mmol/L (101-111) 03/12/20 04:40 Carbon Dioxide 24 mmol/L (21-32) 03/12/20 04:40 Anion Gap 8.0 (6-13) 03/12/20 04:40 BUN 20 mg/dL (6-20) 03/12/20 04:40 Creatinine 0.6 mg/dL (0.4-1.0) 03/12/20 04:40 Estimated GFR (MDRD) 97 (>89) 03/12/20 04:40 Glucose 108 mg/dL (70-100) H 03/12/20 04:40 Estimat Average Glucose 111 mg/dL (70-100) H 03/10/20 05:30 Estimat Average Glucose 111 mg/dL (70-100) H 03/10/20 05:30 Hemoglobin A1c % 5.5 % (4.27-6.07) 03/10/20 05:30 Hemoglobin A1c % 5.5 % (4.27-6.07) 03/10/20 05:30 Calcium 8.3 mg/dL (8.5-10.3) L 03/12/20 04:40 Phosphorus 2.2 mg/dL (2.5-4.6) L 03/10/20 05:30 Magnesium 2.1 mg/dL (1.7-2.8) 03/10/20 05:30 Total Bilirubin 1.2 mg/dL (0.2-1.0) H 03/12/20 04:40 AST 72 IU/L (10-42) H 03/12/20 04:40 ALT 33 IU/L (10-60) 03/12/20 04:40 Alkaline Phosphatase 57 IU/L (42-121) 03/12/20 04:40 Troponin I High Sens 214.6 ng/L (2.3-14.8) H* 03/09/20 21:11 C-Reactive Protein 7.9 mg/dL (0-1.0) H 03/12/20 04:40 B-Natriuretic Peptide 86 pg/mL (5-100) 03/09/20 19:59 Total Protein 5.7 g/dL (6.7-8.2) L 03/12/20 04:40 Albumin 2.8 g/dL (3.2-5.5) L 03/12/20 04:40 Globulin 2.9 g/dL (2.1-4.2) 03/12/20 04:40 Albumin/Globulin Ratio 1.0 (1.0-2.2) 03/12/20 04:40 Lipase 24 U/L (22-51) 03/09/20 20:05 Vitamin B12 246 pg/mL (180-914) 03/10/20 05:30 TSH 0.53 uIU/mL (0.34-5.60) 03/10/20 05:30 Urine Color YELLOW 03/09/20 22:00 Urine Clarity HAZY (CLEAR) 03/09/20 22:00 Urine pH 7.0 PH (5.0-7.5) 03/09/20 22:00 Ur Specific [place] 1.020 (1.002-1.030) 03/09/20 22:00 Urine Protein 30 mg/dL (NEGATIVE) H 03/09/20 22:00 Urine Glucose (UA) NEGATIVE mg/dL (NEGATIVE) 03/09/20 22:00 Urine Ketones 15 mg/dL (NEGATIVE) H 03/09/20 22:00 Urine Occult Blood MODERATE (NEGATIVE) H 03/09/20 22:00 Urine Nitrite NEGATIVE (NEGATIVE) 03/09/20 22:00 Urine Bilirubin NEGATIVE (NEGATIVE) 03/09/20 22:00 Urine Urobilinogen 0.2 (NORMAL) E.U./dL (NORMAL) 03/09/20 22:00 Ur Leukocyte Esterase NEGATIVE (NEGATIVE) 03/09/20 22:00 Urine RBC 6-10 /HPF (0-5) H 03/09/20 22:00 Urine WBC 0-3 /HPF (0-5) 03/09/20 22:00 Ur Squamous Epith Cells MOD Squamous (<= Few) H 03/09/20 22:00 Urine Bacteria Few /HPF (None Seen) 03/09/20 22:00 Ur Microscopic Review INDICATED 03/09/20 22:00 Urine Culture Comments NOT INDICATED 03/09/20 22:00 Nasal Adenovirus (PCR) NOT DETECTED 03/09/20 23:40 Nasal B. parapertussis DNA (PCR) NOT DETECTED 03/09/20 23:40 Nasal Coronavir 229E PCR NOT DETECTED 03/09/20 23:40 Nasal Coronavir HKU1 PCR NOT DETECTED 03/09/20 23:40 Nasal Coronavir NL63 PCR NOT DETECTED 03/09/20 23:40 Nasal Coronavir OC43 PCR NOT DETECTED 03/09/20 23:40 Nasal Enterovir/Rhinovir PCR NOT DETECTED 03/09/20 23:40 Nasal Influenza B PCR NOT DETECTED 03/09/20 23:40 Nasal Influenza A PCR NOT DETECTED 03/09/20 23:40 Nasal Parainfluen 1 PCR NOT DETECTED 03/09/20 23:40 Nasal Parainfluen 2 PCR NOT DETECTED 03/09/20 23:40 Nasal Parainfluen 3 PCR NOT DETECTED 03/09/20 23:40 Nasal Parainfluen 4 PCR NOT DETECTED 03/09/20 23:40 Nasal RSV (PCR) NOT DETECTED 03/09/20 23:40 Nasal B.pertussis DNA PCR NOT DETECTED 03/09/20 23:40 Nasal C.pneumoniae (PCR) NOT DETECTED 03/09/20 23:40 Jomar Human Metapneumo PCR NOT DETECTED 03/09/20 23:40 Nasal M.pneumoniae (PCR) NOT DETECTED 03/09/20 23:40 Nasal SARS-CoV-2 (PCR) NOT DETECTED 03/09/20 23:40 Rheumatoid Factor NEGATIVE (Negative) 03/11/20 05:11 - Procedures Procedures: Procedures REPLACEMENT OF LEFT LENS WITH SYNTH SUB, PERC APPROACH (01/14/15) REPLACEMENT OF RIGHT LENS WITH SYNTH SUB, PERC APPROACH (02/11/15) ABX Reporting Has patient been on IV antibiotics over the past 48 hours?: Yes Current Medications - Current Medications Current Medications: Active Medications Acetaminophen (Tylenol) 650 mg PO Q4HR PRN PRN Reason: Pain 1 to 4 Last Admin: 03/11/20 22:42 Dose: 650 mg Documented by: Atorvastatin Calcium (Lipitor) 10 mg PO QPM JUANITA Last Admin: 03/11/20 22:33 Dose: 10 mg Documented by: Enoxaparin Sodium (Lovenox) 40 mg SUBQ DAILY [facility] Last Admin: 03/12/20 09:05 Dose: 40 mg Documented by: Vancomycin HCl 1 gm/Vancomycin HCl 500 mg/ Sodium Chloride 500 mls @ 250 mls/hr IV Q12H [facility] Last Infusion: 03/12/20 06:50 Dose: Infused Documented by: Multivitamins/Minerals (Theragran M) 1 tab PO DAILYWM [facility] Last Admin: 03/12/20 09:02 Dose: 1 tab Documented by: Nicotine (Nicoderm) 1 patch TOP DAILY [facility] Last Admin: 03/12/20 09:07 Dose: 1 patch Documented by: Nystatin (Mycostatin Cream) 1 applic TOP BID [facility] Last Admin: 03/12/20 09:06 Dose: 1 applic Documented by: Ondansetron HCl (Zofran Odt) 4 mg TL Q6HR PRN PRN Reason: Nausea / Vomiting Ondansetron HCl (Zofran Inj) 4 mg IVP Q6HR PRN PRN Reason: Nausea / Vomiting Oxycodone HCl (Roxicodone) 5 mg PO Q4HR PRN PRN Reason: Pain 5 to 7 Last Admin: 03/11/20 22:42 Dose: 5 mg Documented by: Polyethylene Glycol (Miralax) 17 gm PO DAILY [facility] Last Admin: 03/12/20 09:07 Dose: Not Given Documented by: Saccharomyces Boulardii (Florastor) 250 mg PO BIDWM [facility] Last Admin: 03/12/20 09:02 Dose: 250 mg Documented by: Sodium Chloride (Normal Saline Flush 0.9%) 10 ml IVP PRN PRN PRN Reason: NEEDED PER PROVIDER ORDERS Sodium Chloride (Normal Saline Flush 0.9%) 10 ml IVP 0100,0900,1700 [facility] Last Admin: 03/12/20 09:07 Dose: 10 ml Documented by: Sodium Phosphate (K-Phos Neutral) 250 mg PO TIDWM [facility] Last Admin: 03/12/20 09:02 Dose: 250 mg Documented by: Throat Lozenges (Cepacol) 1 lozenge MM Q2HR PRN PRN Reason: Mouth Sore Pain Losartan [Cozaar] 25 mg PO DAILY 03/09/20 Rosuvastatin Calcium [Crestor] 5 mg PO DAILY 03/09/20 buPROPion HCl [Bupropion Xl] 150 mg PO DAILY 03/10/20
[2020-03-12 13:07] LABS: HEPATITIS A IGM NON-REACTIVE (NON-REACTIVE); HEPATITIS B SURFACE ANTIGEN NON-REACTIVE (NON-REACTIVE); HEPATITIS C ANTIBODY NON-REACTIVE (NON-REACTIVE)
[2020-03-12 16:36] LABS: ANA SCREEN NEGATIVE (NEGATIVE)
[2020-03-12] MEDS ORDERED: buPROPion SR 150 MG TABLET PO ONE (21:00)
[2020-03-12] MEDS: ATORVASTATIN 10 MG TABLET PO SCH (21:18)
[2020-03-12] MEDS: ACETAMINOPHEN 325 MG TABLET PO PRN (21:27)
[2020-03-12] MEDS: oxyCODONE 5 MG TABLET PO PRN (21:28)
[2020-03-13] MEDS: SODIUM CHLORIDE FLUSH 0.9% 10 ML SYRINGE IVP SCH ×3 (01:30→16:28)
[2020-03-13] MEDS: VANCOMYCIN INJ 1 GM, VANCOMYCIN INJ 500 MG in SODIUM CHLORIDE 0.9% 500 ML IV SCH ×2 (03:51→16:32)
[2020-03-13] MEDS: SODIUM CHLORIDE FLUSH 0.9% 10 ML SYRINGE IVP PRN (03:51)
[2020-03-13 05:43] LABS: ALBUMIN 2.6 g/dL (3.2-5.5); ALBUMIN/GLOBULIN RATIO 0.9 (1.0-2.2); BILIRUBIN,TOTAL 0.9 mg/dL (0.2-1.0); CALCIUM 8.2 mg/dL (8.5-10.3); CREATININE 0.6 mg/dL (0.4-1.0); CRP - C-REACTIVE PROTEIN 4.7 mg/dL (0-1.0); TOTAL PROTEIN 5.5 g/dL (6.7-8.2)
[2020-03-13 08:09] LABS: BASOPHILS # (AUTO) 0.1 10^3/uL (0.0-0.1); BASOPHILS % (AUTO) 0.8 %; EOSINOPHILS # (AUTO) 0.3 10^3/uL (0.0-0.7); HGB - HEMOGLOBIN 11.7 g/dL (12.0-16.0); LYMPHOCYTES # (AUTO) 1.8 10^3/uL (1.5-3.5); LYMPHOCYTES % (AUTO) 24.5 %; MEAN CORPUSCULAR HGB CONC 33.2 g/dL (32.0-36.0); MEAN CORPUSCULAR VOLUME 96.2 fL (81.0-99.0); MEAN PLATELET VOLUME 11.3 fL (7.9-10.8); MONOCYTES # (AUTO) 0.8 10^3/uL (0.0-1.0); MONOCYTES % (AUTO) 11.4 %; NEUTROPHILS # (AUTO) 4.2 10^3/uL (1.5-6.6); NEUTROPHILS % (AUTO) 58.2 %; PLT - PLATELET COUNT 167 10^3/uL (130-450); RED BLOOD COUNT 3.66 10^6/uL (4.20-5.40); RED CELL DISTRIBUTION WIDTH 12.9 % (12.0-15.0); WHITE BLOOD COUNT 7.2 x10^3/uL (4.8-10.8)
[2020-03-13] MEDS: buPROPion XL 150 MG TABLET PO SCH (09:19)
[2020-03-13] MEDS: MULTIVITAMIN W/MINERALS TABLET PO SCH (09:19)
[2020-03-13] MEDS: POTASSIUM CHLORIDE 20 MEQ TABLET PO SCH ×3 (09:19→21:12)
[2020-03-13] MEDS: NYSTATIN CREAM 15 GM TUBE TOP SCH ×2 (09:20→21:13)
[2020-03-13] MEDS: NEUTRA-PHOS 250 MG TABLET PO SCH ×3 (09:20→16:28)
[2020-03-13] MEDS: SACCHAROMYCES BOULARDII 250 MG CAPSULE PO SCH ×2 (09:20→16:28)
[2020-03-13] MEDS: NICOTINE 14 MG PATCH TOP SCH (09:21)
[2020-03-13] MEDS: ENOXAPARIN 40 MG/0.4 ML SYRINGE SUBQ SCH (09:24)
[2020-03-13] MEDS: polyethylene glycoL 3350 17 GM PACKET PO SCH (09:25)
--- NOTE | 2020-03-13 12:07 | PROVIDER PROGRESS NOTE ---
Subjective - Prog Note Date Prog Note Date: 03/13/20 - Subjective Subjective: She reports feeling well. She is happy the erythema in her left leg is improving but it is still quite prominent. She states her pain is controlled. She is motivated to get up out of bed and ambulate. She is agreeable to SNF on discharge. Current Medications - Current Medications Current Medications: Active Medications Acetaminophen (Tylenol) 650 mg PO Q4HR PRN PRN Reason: Pain 1 to 4 Last Admin: 03/12/20 21:27 Dose: 650 mg Documented by: Atorvastatin Calcium (Lipitor) 10 mg PO QPM [facility] Last Admin: 03/12/20 21:18 Dose: 10 mg Documented by: Bupropion HCl (Wellbutrin Xl) 150 mg PO DAILY [facility] Last Admin: 03/13/20 09:19 Dose: 150 mg Documented by: Enoxaparin Sodium (Lovenox) 40 mg SUBQ DAILY [facility] Last Admin: 03/13/20 09:24 Dose: 40 mg Documented by: Vancomycin HCl 1 gm/Vancomycin HCl 500 mg/ Sodium Chloride 500 mls @ 250 mls/hr IV Q12H [facility] Last Infusion: 03/13/20 06:08 Dose: Infused Documented by: Multivitamins/Minerals (Theragran M) 1 tab PO DAILYWM [facility] Last Admin: 03/13/20 09:19 Dose: 1 tab Documented by: Nicotine (Nicoderm) 1 patch TOP DAILY [facility] Last Admin: 03/13/20 09:21 Dose: 1 patch Documented by: Nystatin (Mycostatin Cream) 1 applic TOP BID [facility] Last Admin: 03/13/20 09:20 Dose: 1 applic Documented by: Ondansetron HCl (Zofran Odt) 4 mg TL Q6HR PRN PRN Reason: Nausea / Vomiting Ondansetron HCl (Zofran Inj) 4 mg IVP Q6HR PRN PRN Reason: Nausea / Vomiting Oxycodone HCl (Roxicodone) 5 mg PO Q4HR PRN PRN Reason: Pain 5 to 7 Last Admin: 03/12/20 21:28 Dose: 5 mg Documented by: Polyethylene Glycol (Miralax) 17 gm PO DAILY [facility] Last Admin: 03/13/20 09:25 Dose: Not Given Documented by: Potassium Chloride (K-Dur) 20 meq PO TID [facility] Stop: 03/14/20 06:01 Last Admin: 03/13/20 09:19 Dose: 20 meq Documented by: Saccharomyces Boulardii (Florastor) 250 mg PO BIDWM [facility] Last Admin: 03/13/20 09:20 Dose: 250 mg Documented by: Sodium Chloride (Normal Saline Flush 0.9%) 10 ml IVP PRN PRN PRN Reason: NEEDED PER PROVIDER ORDERS Last Admin: 03/13/20 03:51 Dose: 10 ml Documented by: Sodium Chloride (Normal Saline Flush 0.9%) 10 ml IVP 0100,0900,1700 [facility] Last Admin: 03/13/20 09:25 Dose: 10 ml Documented by: Sodium Phosphate (K-Phos Neutral) 250 mg PO TIDWM [facility] Last Admin: 03/13/20 11:26 Dose: 250 mg Documented by: Throat Lozenges (Cepacol) 1 lozenge MM Q2HR PRN PRN Reason: Mouth Sore Pain Losartan [Cozaar] 25 mg PO DAILY 03/09/20 Rosuvastatin Calcium [Crestor] 5 mg PO DAILY 03/09/20 buPROPion HCl [Bupropion Xl] 150 mg PO DAILY 03/10/20 Objective - Vital Signs/Intake & Output Reviewed Vital Signs: Yes Vital Signs: Vital Signs x48h Temp Pulse Resp BP Pulse Ox 03/13/20 08:28 36.9 C 84 18 116/68 97 Intake & Output: Intake & Output 03/10/20 03/11/20 03/12/20 03/13/20 23:59 23:59 23:59 23:59 Intake Total 3266.000 2015.000 1920 1220 Output Total 500 1250 Balance 2766.000 938.632 1930 1220 - Objective General Appearance: positive: No acute distress Eyes Bilateral: positive: Normal inspection, Conjunctivae nml ENT: positive: ENT inspection nml Neck: positive: Nml inspection Respiratory: positive: No respiratory distress. negative: Wheezes, Rales Cardiovascular: positive: Regular rate & rhythm. negative: Tachycardia Skin: positive: Warm, Dry, Other (There is still erythema noted over the medial aspect of the right calf as well as the lateral aspect of the left thigh. This appears improved compared to the lines that were previously demarcated. Although the size has decreased, there is still significant erythema.) Extremities: positive: Pedal edema (She has about +1 pitting edema in her bilateral lower extremities.) Neurologic/Psychiatric: positive: Oriented x3 - Lab Results Fish Bones: 03/13/20 05:12 03/13/20 05:12 Other Labs: Lab Results x24hrs 03/13/20 03/13/20 03/10/20 Range/Units 05:12 05:12 05:30 WBC 7.2 (4.8-10.8) x10^3/uL RBC 3.66 L (4.20-5.40) 10^6/uL Hgb 11.7 L (12.0-16.0) g/dL Hct 35.2 L (37.0-47.0) % MCV 96.2 (81.0-99.0) fL MCH 32.0 H (27.0-31.0) pg MCHC 33.2 (32.0-36.0) g/dL RDW 12.9 (12.0-15.0) % Plt Count 167 (130-450) 10^3/uL MPV 11.3 H (7.9-10.8) fL Neut # (Auto) 4.2 (1.5-6.6) 10^3/uL Lymph # (Auto) 1.8 (1.5-3.5) 10^3/uL [place] # (Auto) 0.8 (0.0-1.0) 10^3/uL Eos # (Auto) 0.3 (0.0-0.7) 10^3/uL Baso # (Auto) 0.1 (0.0-0.1) 10^3/uL Absolute Nucleated RBC 0.00 x10^3/uL Nucleated RBC % 0.0 /100WBC Sodium 139 (135-145) mmol/L Potassium 3.0 L (3.5-5.0) mmol/L Chloride 105 (101-111) mmol/L Carbon Dioxide 26 (21-32) mmol/L Anion Gap 8.0 (6-13) BUN 18 (6-20) mg/dL Creatinine 0.6 (0.4-1.0) mg/dL Estimated GFR (MDRD) 97 (>89) Glucose 109 H (70-100) mg/dL Calcium 8.2 L (8.5-10.3) mg/dL Total Bilirubin 0.9 (0.2-1.0) mg/dL AST 47 H (10-42) IU/L ALT 30 (10-60) IU/L Alkaline Phosphatase 59 (42-121) IU/L C-Reactive Protein 4.7 H (0-1.0) mg/dL Total Protein 5.5 L (6.7-8.2) g/dL Albumin 2.6 L (3.2-5.5) g/dL Globulin 2.9 (2.1-4.2) g/dL Albumin/Globulin Ratio 0.9 L (1.0-2.2) MISSY Screen (NEGATIVE) Hepatitis A IgM Ab NON-REACTIVE (NON-REACTIVE) Hep Bs Antigen NON-REACTIVE (NON-REACTIVE) Hep B Core IgM Ab NON-REACTIVE (NON-REACTIVE) Hepatitis C Antibody NON-REACTIVE (NON-REACTIVE) Hep C Ab Signal/Cutoff 0.00 (<1.00) 03/10/20 Range/Units 05:30 WBC (4.8-10.8) x10^3/uL RBC (4.20-5.40) 10^6/uL Hgb (12.0-16.0) g/dL Hct (37.0-47.0) % MCV (81.0-99.0) fL MCH (27.0-31.0) pg MCHC (32.0-36.0) g/dL RDW (12.0-15.0) % Plt Count (130-450) 10^3/uL MPV (7.9-10.8) fL Neut # (Auto) (1.5-6.6) 10^3/uL Lymph # (Auto) (1.5-3.5) 10^3/uL [place] # (Auto) (0.0-1.0) 10^3/uL Eos # (Auto) (0.0-0.7) 10^3/uL Baso # (Auto) (0.0-0.1) 10^3/uL Absolute Nucleated RBC x10^3/uL Nucleated RBC % /100WBC Sodium (135-145) mmol/L Potassium (3.5-5.0) mmol/L Chloride (101-111) mmol/L Carbon Dioxide (21-32) mmol/L Anion Gap (6-13) BUN (6-20) mg/dL Creatinine (0.4-1.0) mg/dL Estimated GFR (MDRD) (>89) Glucose (70-100) mg/dL Calcium (8.5-10.3) mg/dL Total Bilirubin (0.2-1.0) mg/dL AST (10-42) IU/L ALT (10-60) IU/L Alkaline Phosphatase (42-121) IU/L C-Reactive Protein (0-1.0) mg/dL Total Protein (6.7-8.2) g/dL Albumin (3.2-5.5) g/dL Globulin (2.1-4.2) g/dL Albumin/Globulin Ratio (1.0-2.2) MISSY Screen NEGATIVE (NEGATIVE) Hepatitis A IgM Ab (NON-REACTIVE) Hep Bs Antigen (NON-REACTIVE) Hep B Core IgM Ab (NON-REACTIVE) Hepatitis C Antibody (NON-REACTIVE) Hep C Ab Signal/Cutoff (<1.00) ABX Reporting Has patient been on IV antibiotics over the past 48 hours?: Yes Assessment/Plan - Problem List (1) Cellulitis of left lower extremity Impression: The cellulitis of the left lower extremity is improving. She was treated with cefazolin IV with a switch to vancomycin despite improving white count and CRP due to ongoing significant erythema. This has now began to improve after she was started on vancomycin IV. Although the erythema has decreased in size, there is still significant amount of erythema and it has not improved to the point where I would transition her to oral antibiotics quite yet. Clinically she does appear to be improving given her white count has normalized and her CRP continues to trend down. We will keep on vancomycin IV for 1 more day and switch to oral antibiotics tomorrow. We will likely monitor her for 24 hours after which an oral antibiotics to ensure she remained stable from a cellulitis aspect. She will likely be stable for discharge over the next 24 to 48 hours. (2) Gram-positive bacteremia Impression: Initial blood cultures from admission grew 1 out of 4 bottles coag negative staph which is likely contaminant. This was repeated after 48 hours and unfortunate was again one of the blood cultures is growing gram-positive cocci. This appears to be coag negative staph and once again, this is likely a contaminant. Given her clinical improvement, we will not recheck blood cultures given her white count has been improving and she has no fever. Her echocardiogram did not also reveal any obvious vegetations so low suspicion for endocarditis. (3) Elevated troponin Impression: Troponins did peak at over 200 but she had no chest pain and EKG was not suggestive of ischemia. She underwent a stress test which did not suggest ischemia. Her echocardiogram reveals a preserved ejection fraction without any wall motion abnormalities. (4) Hypertension Impression: Her blood pressure has been stable on losartan which will be continued. Qualifiers: Hypertension type: essential hypertension Qualified Code(s): I10 - Essential (primary) hypertension (5) TATA on CPAP Impression: Stable. Continue CPAP.
[2020-03-13 16:01] LABS: VANCOMYCIN,TROUGH 17.2 ug/mL (10.0-20.0)
--- NOTE | 2020-03-13 16:43 | PHARMACY PROGRESS NOTE ---
- Therapy Status Vancomycin regimen day #: 3 Therapy status: Trough therapeutic Basis for treatment: Empirical Treatment indication: cellulitis Trough goal: 15-20 - KARMEN Risk Risk level for Acute Kidney Injury: Moderate Acute Kidney Injury risk factors: Wt >100kg or BMI >40, Goal trough >15 - Monitoring and Recommendation Clinical response to treatment: I&O Previous 24 hours 03/11/20 03/12/20 03/13/20 23:59 23:59 23:59 Intake Total 2015.000 1920 1714.167 Output Total 1250 Balance 215.029 4030 1714.167 Lab Results 03/13/20 03/12/20 03/11/20 05:12 04:40 05:11 ESR BUN 18 20 23 H Creatinine 0.6 0.6 0.6 Estimated GFR (MDRD) 97 97 97 03/10/20 03/10/20 03/09/20 05:30 05:30 20:05 ESR 34 H BUN 26 H 28 H Creatinine 0.7 1.1 H Estimated GFR (MDRD) 81 L 48 L Vancomycin Monitoring 03/13/20 15:34 Vancomycin Trough 17.2 Cultures 03/11/20 11:00 Blood Blood Culture - Preliminary NO GROWTH AFTER 2 DAYS 03/09/20 19:59 Blood - Left Iv Start Blood Culture - Preliminary Staphylococcus Anirudh Ssp.hominis 03/11/20 11:00 Blood Blood Culture - Preliminary 03/09/20 20:05 Blood - Right Arm Blood Culture - Preliminary NO GROWTH AFTER 2 DAYS Monitoring plan: Daily serum creatinine Areas for additional monitoring: IV to PO when appropriate, Therapy de- escalation based on culture results Pharmacy recommendation: Discontinue therapy
[2020-03-13 19:57] LABS: ALBUMIN 2.7 g/dL (3.8-4.8); ALPHA 1 GLOBULIN 0.4 g/dL (0.2-0.3); ALPHA 2 GLOBULIN 0.7 g/dL (0.5-0.9); BETA 1 GLOBULIN 0.4 g/dL (0.4-0.6); BETA 2 GLOBULIN 0.4 g/dL (0.2-0.5); GAMMA GLOBULIN 0.8 g/dL (0.8-1.7)
[2020-03-13] MEDS: ATORVASTATIN 10 MG TABLET PO SCH (21:12)
[2020-03-13] MEDS: ACETAMINOPHEN 325 MG TABLET PO PRN (21:12)
[2020-03-13] MEDS: oxyCODONE 5 MG TABLET PO PRN (21:12)
[2020-03-14] MEDS: SODIUM CHLORIDE FLUSH 0.9% 10 ML SYRINGE IVP SCH ×3 (01:30→16:01)
[2020-03-14] MEDS: VANCOMYCIN INJ 1 GM, VANCOMYCIN INJ 500 MG in SODIUM CHLORIDE 0.9% 500 ML IV SCH ×2 (04:05→16:01)
[2020-03-14] MEDS: SODIUM CHLORIDE FLUSH 0.9% 10 ML SYRINGE IVP PRN (04:06)
[2020-03-14 05:39] LABS: BASOPHILS # (AUTO) 0.1 10^3/uL (0.0-0.1); BASOPHILS % (AUTO) 0.6 %; EOSINOPHILS # (AUTO) 0.3 10^3/uL (0.0-0.7); HGB - HEMOGLOBIN 11.2 g/dL (12.0-16.0); LYMPHOCYTES % (AUTO) 23.7 %; MEAN CORPUSCULAR HEMOGLOBIN 31.2 pg (27.0-31.0); MEAN CORPUSCULAR HGB CONC 32.3 g/dL (32.0-36.0); MEAN CORPUSCULAR VOLUME 96.7 fL (81.0-99.0); MEAN PLATELET VOLUME 10.4 fL (7.9-10.8); MONOCYTES % (AUTO) 11.7 %; NEUTROPHILS # (AUTO) 4.8 10^3/uL (1.5-6.6); NEUTROPHILS % (AUTO) 58.3 %; PLT - PLATELET COUNT 187 10^3/uL (130-450); RED BLOOD COUNT 3.59 10^6/uL (4.20-5.40); RED CELL DISTRIBUTION WIDTH 12.8 % (12.0-15.0); WHITE BLOOD COUNT 8.3 x10^3/uL (4.8-10.8)
[2020-03-14 05:56] LABS: ALBUMIN 2.8 g/dL (3.2-5.5); BILIRUBIN,TOTAL 1.3 mg/dL (0.2-1.0); CALCIUM 8.7 mg/dL (8.5-10.3); CREATININE 0.5 mg/dL (0.4-1.0); CRP - C-REACTIVE PROTEIN 3.4 mg/dL (0-1.0); TOTAL PROTEIN 5.7 g/dL (6.7-8.2)
[2020-03-14] MEDS: POTASSIUM CHLORIDE 20 MEQ TABLET PO SCH (06:14)
[2020-03-14] MEDS: SACCHAROMYCES BOULARDII 250 MG CAPSULE PO SCH ×2 (09:00→16:01)
[2020-03-14] MEDS: NEUTRA-PHOS 250 MG TABLET PO SCH ×3 (09:01→16:01)
[2020-03-14] MEDS: buPROPion XL 150 MG TABLET PO SCH (09:01)
[2020-03-14] MEDS: MULTIVITAMIN W/MINERALS TABLET PO SCH (09:01)
[2020-03-14] MEDS: DOCUSATE SODIUM 250 MG CAPSULE PO SCH (09:02)
[2020-03-14] MEDS: polyethylene glycoL 3350 17 GM PACKET PO SCH (09:02)
[2020-03-14] MEDS: NYSTATIN CREAM 15 GM TUBE TOP SCH ×2 (09:02→20:59)
[2020-03-14] MEDS: NICOTINE 14 MG PATCH TOP SCH (09:04)
[2020-03-14] MEDS: ENOXAPARIN 40 MG/0.4 ML SYRINGE SUBQ SCH (09:05)
--- NOTE | 2020-03-14 09:13 | PROVIDER PROGRESS NOTE ---
Subjective - Prog Note Date Prog Note Date: 03/14/20 - Subjective Subjective: She reports feeling well overall. She still has erythema in her left lower extremity which she feels is slightly improved compared to yesterday. No significant pain in the lower extremity. Current Medications - Current Medications Current Medications: Active Medications Acetaminophen (Tylenol) 650 mg PO Q4HR PRN PRN Reason: Pain 1 to 4 Last Admin: 03/13/20 21:12 Dose: 650 mg Documented by: Atorvastatin Calcium (Lipitor) 10 mg PO QPM [facility] Last Admin: 03/13/20 21:12 Dose: 10 mg Documented by: Bupropion HCl (Wellbutrin Xl) 150 mg PO DAILY [facility] Last Admin: 03/14/20 09:01 Dose: 150 mg Documented by: Docusate Sodium (Colace 250mg Capsule) 250 - 500 mg PO DAILY [facility] Last Admin: 03/14/20 09:02 Dose: Not Given Documented by: Enoxaparin Sodium (Lovenox) 40 mg SUBQ DAILY [facility] Last Admin: 03/14/20 09:05 Dose: 40 mg Documented by: Vancomycin HCl 1 gm/Vancomycin HCl 500 mg/ Sodium Chloride 500 mls @ 250 mls/hr IV Q12H [facility] Last Admin: 03/14/20 16:01 Dose: 250 mls/hr Documented by: Multivitamins/Minerals (Theragran M) 1 tab PO DAILYWM [facility] Last Admin: 03/14/20 09:01 Dose: 1 tab Documented by: Nicotine (Nicoderm) 1 patch TOP DAILY [facility] Last Admin: 03/14/20 09:04 Dose: 1 patch Documented by: Nystatin (Mycostatin Cream) 1 applic TOP BID [facility] Last Admin: 03/14/20 09:02 Dose: 1 applic Documented by: Ondansetron HCl (Zofran Odt) 4 mg TL Q6HR PRN PRN Reason: Nausea / Vomiting Ondansetron HCl (Zofran Inj) 4 mg IVP Q6HR PRN PRN Reason: Nausea / Vomiting Oxycodone HCl (Roxicodone) 5 mg PO Q4HR PRN PRN Reason: Pain 5 to 7 Last Admin: 03/13/20 21:12 Dose: 5 mg Documented by: Polyethylene Glycol (Miralax) 17 gm PO DAILY [facility] Last Admin: 03/14/20 09:02 Dose: Not Given Documented by: Saccharomyces Boulardii (Florastor) 250 mg PO BIDWM [facility] Last Admin: 03/14/20 16:01 Dose: 250 mg Documented by: Sodium Chloride (Normal Saline Flush 0.9%) 10 ml IVP PRN PRN PRN Reason: NEEDED PER PROVIDER ORDERS Last Admin: 03/14/20 04:06 Dose: 10 ml Documented by: Sodium Chloride (Normal Saline Flush 0.9%) 10 ml IVP 0100,0900,1700 [facility] Last Admin: 03/14/20 16:01 Dose: 10 ml Documented by: Sodium Phosphate (K-Phos Neutral) 250 mg PO TIDWM [facility] Last Admin: 03/14/20 16:01 Dose: 250 mg Documented by: Throat Lozenges (Cepacol) 1 lozenge MM Q2HR PRN PRN Reason: Mouth Sore Pain Losartan [Cozaar] 25 mg PO DAILY 03/09/20 Rosuvastatin Calcium [Crestor] 5 mg PO DAILY 03/09/20 buPROPion HCl [Bupropion Xl] 150 mg PO DAILY 03/10/20 Objective - Vital Signs/Intake & Output Reviewed Vital Signs: Yes Vital Signs: Vital Signs x48h Temp Pulse Resp BP Pulse Ox 03/14/20 01:20 36.7 C 79 20 148/58 H 95 Intake & Output: Intake & Output 03/11/20 03/12/20 03/13/20 03/14/20 23:59 23:59 23:59 23:59 Intake Total 2015.000 1920 2210.000 500 Output Total 1250 Balance 334.853 9030 2210.000 500 - Objective General Appearance: positive: No acute distress, Alert Eyes Bilateral: positive: Normal inspection ENT: positive: ENT inspection nml Neck: positive: Nml inspection Respiratory: positive: No respiratory distress Abdomen: positive: Non-tender, No distention, Other (Umbilical hernia noted.) Skin: positive: Warm, Dry, Other (The erythema has improved compared to the outline on admission. She still has significant erythema over the posterior aspect of the calf. This is mildly tender but is still warm to touch. There is also erythema over the lateral aspect of the thigh which is slightly improved.) Extremities: positive: Pedal edema (+1 pitting edema in bilateral lower extrem ities.) Neurologic/Psychiatric: positive: Oriented x3 - Lab Results Fish Bones: 03/14/20 05:24 03/14/20 05:24 Other Labs: Lab Results x24hrs 03/14/20 03/14/20 03/13/20 Range/Units 05:24 05:24 15:34 WBC 8.3 (4.8-10.8) x10^3/uL RBC 3.59 L (4.20-5.40) 10^6/uL Hgb 11.2 L (12.0-16.0) g/dL Hct 34.7 L (37.0-47.0) % MCV 96.7 (81.0-99.0) fL MCH 31.2 H (27.0-31.0) pg MCHC 32.3 (32.0-36.0) g/dL RDW 12.8 (12.0-15.0) % Plt Count 187 (130-450) 10^3/uL MPV 10.4 (7.9-10.8) fL Neut # (Auto) 4.8 (1.5-6.6) 10^3/uL Lymph # (Auto) 2.0 (1.5-3.5) 10^3/uL Bent # (Auto) 1.0 (0.0-1.0) 10^3/uL Eos # (Auto) 0.3 (0.0-0.7) 10^3/uL Baso # (Auto) 0.1 (0.0-0.1) 10^3/uL Absolute Nucleated RBC 0.00 x10^3/uL Nucleated RBC % 0.0 /100WBC Sodium 141 (135-145) mmol/L Potassium 3.6 (3.5-5.0) mmol/L Chloride 106 (101-111) mmol/L Carbon Dioxide 27 (21-32) mmol/L Anion Gap 8.0 (6-13) BUN 15 (6-20) mg/dL Creatinine 0.5 (0.4-1.0) mg/dL Estimated GFR (MDRD) 119 (>89) Glucose 101 H (70-100) mg/dL Calcium 8.7 (8.5-10.3) mg/dL Total Bilirubin 1.3 H (0.2-1.0) mg/dL AST 43 H (10-42) IU/L ALT 33 (10-60) IU/L Alkaline Phosphatase 67 (42-121) IU/L C-Reactive Protein 3.4 H (0-1.0) mg/dL Total Protein 5.7 L (6.7-8.2) g/dL Albumin 2.8 L (3.2-5.5) g/dL Globulin 2.9 (2.1-4.2) g/dL Albumin/Globulin Ratio 1.0 (1.0-2.2) Rqnf-8-Rpwmhkyv (0.4-0.6) g/dL Yset-5-Zshgzkuw (0.2-0.5) g/dL Last Dose Date 03/13/2020 Last Dose Time 06:08 Vancomycin Trough 17.2 (10.0-20.0) ug/mL CHELSEA & SPEP Interp Total Protein ([facility]SEA) (6.1-8.1) g/dL Albumin ([facility]HELSEA) (3.8-4.8) g/dL Hcoav-6-Mqmrkqcdr CHELSEA (0.2-0.3) g/dL Xchud-2-Gloozquak C[facility]SEA (0.5-0.9) g/dL Gamma Globulins ([facility]SEA) (0.8-1.7) g/dL 03/10/20 Range/Units 05:30 WBC (4.8-10.8) x10^3/uL RBC (4.20-5.40) 10^6/uL Hgb (12.0-16.0) g/dL Hct (37.0-47.0) % MCV (81.0-99.0) fL MCH (27.0-31.0) pg MCHC (32.0-36.0) g/dL RDW (12.0-15.0) % Plt Count (130-450) 10^3/uL MPV (7.9-10.8) fL Neut # (Auto) (1.5-6.6) 10^3/uL Lymph # (Auto) (1.5-3.5) 10^3/uL Bent # (Auto) (0.0-1.0) 10^3/uL Eos # (Auto) (0.0-0.7) 10^3/uL Baso # (Auto) (0.0-0.1) 10^3/uL Absolute Nucleated RBC x10^3/uL Nucleated RBC % /100WBC Sodium (135-145) mmol/L Potassium (3.5-5.0) mmol/L Chloride (101-111) mmol/L Carbon Dioxide (21-32) mmol/L Anion Gap (6-13) BUN (6-20) mg/dL Creatinine (0.4-1.0) mg/dL Estimated GFR (MDRD) (>89) Glucose (70-100) mg/dL Calcium (8.5-10.3) mg/dL Total Bilirubin (0.2-1.0) mg/dL AST (10-42) IU/L ALT (10-60) IU/L Alkaline Phosphatase (42-121) IU/L C-Reactive Protein (0-1.0) mg/dL Total Protein (6.7-8.2) g/dL Albumin (3.2-5.5) g/dL Globulin (2.1-4.2) g/dL Albumin/Globulin Ratio (1.0-2.2) Ftfd-8-Rdzpcnwr 0.4 (0.4-0.6) g/dL Mqhe-1-Lqtgwebk 0.4 (0.2-0.5) g/dL Last Dose Date Last Dose Time Vancomycin Trough (10.0-20.0) ug/mL [facility] SPEP Interp SEE NOTE Total Protein ([facility]) 5.4 L (6.1-8.1) g/dL Albumin ([facility]) 2.7 L (3.8-4.8) g/dL Bgdwp-6-Ytscryqbd [facility] 0.4 H (0.2-0.3) g/dL Qhwsw-3-Ofjvvdaiv [facility] 0.7 (0.5-0.9) g/dL Gamma Globulins ([facility]) 0.8 (0.8-1.7) g/dL ABX Reporting Has patient been on IV antibiotics over the past 48 hours?: Yes Assessment/Plan - Problem List (1) Cellulitis of left lower extremity Impression: The erythema is improving although she still has quite a bit of erythema over the posterior aspect of the left calf. She did have an ultrasound on admission also was nonvascular which was consistent with cellulitis. Her white count has remained normal and her CRP continues to improve on a daily basis. Although she has improved compared to admission, given the significant erythema, I feel that she needs at least another day of IV antibiotics. We will keep her on vancomycin IV. If there is no significant improvement over the next 24 hours then we will likely obtain a CT to ensure there is no underlying abscess or any other possible source of infection although this is less likely at this time given this is not purulent cellulitis and her white count has improved as well as her CRP. If tomorrow there continues to be steady improvement we will switch her to oral antibiotics in hopes that she can be discharged the following day. Given her slow progression, we will likely treat her for a total of 14 days. (2) Gram-positive bacteremia Impression: Initial blood cultures grew 1 out of 4 coag negative staph which is likely contaminant. Repeat blood cultures are once again growing 1 out of 4 bottles with coag negative staph. Is once again likely contaminant given her CRP is improving and her white count has remained normal with lack of fever. (3) Elevated troponin Impression: Her troponins did peak at over 200 but her stress test did not reveal ischemia and echocardiogram showed no wall motion abnormalities. (4) Hypertension Impression: Continue losartan. Qualifiers: Hypertension type: essential hypertension Qualified Code(s): I10 - Essential (primary) hypertension (5) TATA on CPAP Impression: Continue CPAP.
[2020-03-14] MEDS: ACETAMINOPHEN 325 MG TABLET PO PRN (20:58)
[2020-03-14] MEDS: ATORVASTATIN 10 MG TABLET PO SCH (20:58)
[2020-03-14] MEDS: oxyCODONE 5 MG TABLET PO PRN (20:59)
[2020-03-15] MEDS: SODIUM CHLORIDE FLUSH 0.9% 10 ML SYRINGE IVP SCH ×3 (04:38→16:25)
[2020-03-15] MEDS: VANCOMYCIN INJ 1 GM, VANCOMYCIN INJ 500 MG in SODIUM CHLORIDE 0.9% 500 ML IV SCH ×2 (04:38→20:04)
[2020-03-15 06:03] LABS: ALBUMIN 2.9 g/dL (3.2-5.5); BILIRUBIN,TOTAL 1.4 mg/dL (0.2-1.0); CALCIUM 8.5 mg/dL (8.5-10.3); CREATININE 0.6 mg/dL (0.4-1.0); CRP - C-REACTIVE PROTEIN 2.2 mg/dL (0-1.0); TOTAL PROTEIN 5.7 g/dL (6.7-8.2)
--- NOTE | 2020-03-15 07:13 | PROVIDER PROGRESS NOTE ---
Subjective - Prog Note Date Prog Note Date: 03/15/20 - Subjective Subjective: She still feels well but is concerned that her left lower extremity is still quite erythematous. It is still painful. Has not progressed much over the past 24 hours. Current Medications - Current Medications Current Medications: Active Medications Acetaminophen (Tylenol) 650 mg PO Q4HR PRN PRN Reason: Pain 1 to 4 Last Admin: 03/14/20 20:58 Dose: 650 mg Documented by: Atorvastatin Calcium (Lipitor) 10 mg PO QPM [facility] Last Admin: 03/14/20 20:58 Dose: 10 mg Documented by: Bupropion HCl (Wellbutrin Xl) 150 mg PO DAILY [facility] Last Admin: 03/14/20 09:01 Dose: 150 mg Documented by: Docusate Sodium (Colace 250mg Capsule) 250 - 500 mg PO DAILY [facility] Last Admin: 03/14/20 09:02 Dose: Not Given Documented by: Enoxaparin Sodium (Lovenox) 40 mg SUBQ DAILY [facility] Last Admin: 03/14/20 09:05 Dose: 40 mg Documented by: Vancomycin HCl 1 gm/Vancomycin HCl 500 mg/ Sodium Chloride 500 mls @ 250 mls/hr IV Q12H [facility] Last Admin: 03/15/20 04:38 Dose: Not Given Documented by: Multivitamins/Minerals (Theragran M) 1 tab PO DAILYWM [facility] Last Admin: 03/14/20 09:01 Dose: 1 tab Documented by: Nicotine (Nicoderm) 1 patch TOP DAILY [facility] Last Admin: 03/14/20 09:04 Dose: 1 patch Documented by: Nystatin (Mycostatin Cream) 1 applic TOP BID [facility] Last Admin: 03/14/20 20:59 Dose: 1 applic Documented by: Ondansetron HCl (Zofran Odt) 4 mg TL Q6HR PRN PRN Reason: Nausea / Vomiting Ondansetron HCl (Zofran Inj) 4 mg IVP Q6HR PRN PRN Reason: Nausea / Vomiting Oxycodone HCl (Roxicodone) 5 mg PO Q4HR PRN PRN Reason: Pain 5 to 7 Last Admin: 03/14/20 20:59 Dose: 5 mg Documented by: Polyethylene Glycol (Miralax) 17 gm PO DAILY [facility] Last Admin: 03/14/20 09:02 Dose: Not Given Documented by: Saccharomyces Boulardii (Florastor) 250 mg PO BIDWM [facility] Last Admin: 03/14/20 16:01 Dose: 250 mg Documented by: Sodium Chloride (Normal Saline Flush 0.9%) 10 ml IVP PRN PRN PRN Reason: NEEDED PER PROVIDER ORDERS Last Admin: 03/14/20 04:06 Dose: 10 ml Documented by: Sodium Chloride (Normal Saline Flush 0.9%) 10 ml IVP 0100,0900,1700 [facility] Last Admin: 03/15/20 04:38 Dose: Not Given Documented by: Sodium Phosphate (K-Phos Neutral) 250 mg PO TIDWM [facility] Last Admin: 03/14/20 16:01 Dose: 250 mg Documented by: Throat Lozenges (Cepacol) 1 lozenge MM Q2HR PRN PRN Reason: Mouth Sore Pain Losartan [Cozaar] 25 mg PO DAILY 03/09/20 Rosuvastatin Calcium [Crestor] 5 mg PO DAILY 03/09/20 buPROPion HCl [Bupropion Xl] 150 mg PO DAILY 03/10/20 Objective - Vital Signs/Intake & Output Reviewed Vital Signs: Yes Vital Signs: Vital Signs x48h Temp Pulse Resp BP Pulse Ox 03/15/20 00:18 36.7 C 84 18 134/69 H 94 Intake & Output: Intake & Output 03/12/20 03/13/20 03/14/20 03/15/20 23:59 23:59 23:59 23:59 Intake Total 192 2210.000 1950 120 Balance 1919 2210.000 1950 120 - Objective General Appearance: positive: No acute distress, Alert Eyes Bilateral: positive: Normal inspection ENT: positive: ENT inspection nml Neck: positive: Nml inspection Respiratory: positive: No respiratory distress. negative: Wheezes, Rales Cardiovascular: positive: Regular rate & rhythm. negative: Tachycardia Skin: positive: Warm, Dry, Other (There is still significant erythema over the posterior aspect of the left calf. This has not improved compared to yesterday. Still quite warm to touch and tender to palpation. No obvious induration.) - Lab Results Fish Bones: 03/16/20 04:40 03/16/20 04:40 Other Labs: Lab Results x24hrs 03/15/20 03/10/20 Range/Units 05:20 05:30 Sodium 140 (135-145) mmol/L Potassium 3.4 L (3.5-5.0) mmol/L Chloride 105 (101-111) mmol/L Carbon Dioxide 27 (21-32) mmol/L Anion Gap 8.0 (6-13) BUN 15 (6-20) mg/dL Creatinine 0.6 (0.4-1.0) mg/dL Estimated GFR (MDRD) 97 (>89) Glucose 105 H (70-100) mg/dL Calcium 8.5 (8.5-10.3) mg/dL Total Bilirubin 1.4 H (0.2-1.0) mg/dL AST 39 (10-42) IU/L ALT 35 (10-60) IU/L Alkaline Phosphatase 66 (42-121) IU/L C-Reactive Protein 2.2 H (0-1.0) mg/dL Total Protein 5.7 L (6.7-8.2) g/dL Albumin 2.9 L (3.2-5.5) g/dL Globulin 2.8 (2.1-4.2) g/dL Albumin/Globulin Ratio 1.0 (1.0-2.2) Methylmalonic Acid 132 (87-318) nmol/L ABX Reporting Has patient been on IV antibiotics over the past 48 hours?: Yes Assessment/Plan - Problem List (1) Cellulitis of left lower extremity Impression: She still has significant left lower extremity erythema that is warm to touch and tender on palpation over the left calf Despite her CRP improving and white count being stable, she still has significant cellulitis and I am concerned over the lack of improvement over the past 24 hours. Given the ongoing erythema, we will keep her on vancomycin IV for the time being. We will check duplex of the left lower extremity. If this does not reveal a DVT then we will proceed with a CT with IV contrast to ensure there is no deep soft tissue infection or abscess which may be causing her ongoing symptoms. This is unremarkable, we will add ceftriaxone IV in addition to the vancomycin for next 24 hours. This may just be cellulitis that is slowly improving. (2) Gram-positive bacteremia Impression: Initial blood cultures grew coag negative staph 1 out of 4 bottles. Repeat blood cultures are also growing coag negative staph in 1 out of 4 bottles. I suspect that both of these are contaminant. We will no longer repeat antibiotics. She did have an echocardiogram which also did not suggest any obvious vegetation. (3) Elevated troponin Impression: Her troponins did peak at over 200 but her stress test did not reveal ischemia and echocardiogram showed no wall motion abnormalities. (4) Hypertension Impression: Continue losartan. Qualifiers: Hypertension type: essential hypertension Qualified Code(s): I10 - Essential (primary) hypertension (5) TATA on CPAP Impression: Continue CPAP.
[2020-03-15] MEDS: polyethylene glycoL 3350 17 GM PACKET PO SCH (09:01)
[2020-03-15] MEDS: MULTIVITAMIN W/MINERALS TABLET PO SCH (09:02)
[2020-03-15] MEDS: SACCHAROMYCES BOULARDII 250 MG CAPSULE PO SCH ×2 (09:02→16:25)
[2020-03-15] MEDS: NEUTRA-PHOS 250 MG TABLET PO SCH ×3 (09:02→16:25)
[2020-03-15] MEDS: DOCUSATE SODIUM 250 MG CAPSULE PO SCH (09:02)
[2020-03-15] MEDS: NICOTINE 14 MG PATCH TOP SCH (09:02)
[2020-03-15] MEDS: NYSTATIN CREAM 15 GM TUBE TOP SCH ×2 (09:02→20:04)
[2020-03-15] MEDS: buPROPion XL 150 MG TABLET PO SCH (09:02)
[2020-03-15] MEDS: ENOXAPARIN 40 MG/0.4 ML SYRINGE SUBQ SCH (09:02)
--- NOTE | 2020-03-15 09:52 | Ultrasound Report ---
PROCEDURE: Duplex Ext Veins Left INDICATIONS: Swelling. Pain. Erythema. TECHNIQUE: Real-time imaging, as well as color and pulse Doppler interrogation, were performed of the lower extr emity deep veins from the inguinal ligament to the popliteal fossa. COMPARISON: None. FINDINGS: The deep veins are normally compressible, and free of intraluminal thrombus. Color and pu lse Doppler demonstrate normal phasic intraluminal flow. There is normal augmentation response to di stal compression maneuver. IMPRESSION: No sonographic evidence of DVT. Skin thickening and subcutaneous edema consistent with a history of cellulitis. Reviewed by: Rui Wasserman MD on 03/15/2020 9:51 AM PST Approved by: Rui Wasserman MD on 03/15/2020 9:51 AM PST Station ID: [id number]
[2020-03-15] MEDS: cefTRIAXone 2 GM in SODIUM CHLORIDE 0.9% MINIBAG 100 ML IV SCH (15:13)
[2020-03-15 15:44] LABS: VANCOMYCIN,TROUGH 20.2 ug/mL (10.0-20.0)
[2020-03-15] MEDS ORDERED: IOVERSOL 320 100 ML VIAL IVP ONE ×2 (15:48→19:43)
[2020-03-15] MEDS: ACETAMINOPHEN 325 MG TABLET PO PRN (16:27)
--- NOTE | 2020-03-15 16:46 | CT Report ---
PROCEDURE: LOWER EXTREMITY W - LT INDICATIONS: Persistent cellulitis left calf. Erthema. Tender. TECHNIQUE: Contrast enhanced 1 mm axial images through the left tibia/fibula with sagittal and wilkerson l reformations. COMPARISON: None. FINDINGS: There is extensive diffuse circumferential subcutaneous cellulitis and scattered superficial fascial fluid. There is also associated overlying skin thickening. No definite soft tissue gas is seen. No fo opal fluid collection to suggest abscess identified. No definite focal osseous destruction to suggest advanced osteomyelitis. Knee joint degeneration is present. Diffuse muscle atrophy. No fracture. Plan tar and posterior calcaneal spurring. There is diffuse hindfoot and midfoot joint degeneration. IMPRESSION: Diffuse subcutaneous cellulitis and superficial fascial fluid as above. Reviewed by: Ari Joseph MD on 03/15/2020 4:45 PM PST Approved by: Ari Joseph MD on 03/15/2020 4:45 PM PST Station ID: [id number]
[2020-03-15] MEDS: ATORVASTATIN 10 MG TABLET PO SCH (20:05)
[2020-03-15] MEDS: oxyCODONE 5 MG TABLET PO PRN (20:09)
[2020-03-16] MEDS: SODIUM CHLORIDE FLUSH 0.9% 10 ML SYRINGE IVP SCH ×3 (00:50→16:43)
[2020-03-16 04:45] LABS: BASOPHILS # (AUTO) 0.1 10^3/uL (0.0-0.1); BASOPHILS % (AUTO) 0.6 %; EOSINOPHILS # (AUTO) 0.4 10^3/uL (0.0-0.7); EOSINOPHILS % (AUTO) 4.2 %; HGB - HEMOGLOBIN 11.7 g/dL (12.0-16.0); LYMPHOCYTES % (AUTO) 20.7 %; MEAN CORPUSCULAR HEMOGLOBIN 31.8 pg (27.0-31.0); MEAN CORPUSCULAR HGB CONC 32.5 g/dL (32.0-36.0); MEAN CORPUSCULAR VOLUME 97.8 fL (81.0-99.0); MEAN PLATELET VOLUME 10.3 fL (7.9-10.8); MONOCYTES # (AUTO) 0.8 10^3/uL (0.0-1.0); MONOCYTES % (AUTO) 8.3 %; NEUTROPHILS # (AUTO) 6.1 10^3/uL (1.5-6.6); NEUTROPHILS % (AUTO) 64.3 %; PLT - PLATELET COUNT 223 10^3/uL (130-450); RED BLOOD COUNT 3.68 10^6/uL (4.20-5.40); RED CELL DISTRIBUTION WIDTH 12.9 % (12.0-15.0); WHITE BLOOD COUNT 9.5 x10^3/uL (4.8-10.8)
[2020-03-16 04:54] LABS: CALCIUM 8.8 mg/dL (8.5-10.3); CREATININE 0.7 mg/dL (0.4-1.0)
[2020-03-16] MEDS: MULTIVITAMIN W/MINERALS TABLET PO SCH (08:43)
[2020-03-16] MEDS: SACCHAROMYCES BOULARDII 250 MG CAPSULE PO SCH ×2 (08:43→16:42)
[2020-03-16] MEDS: NEUTRA-PHOS 250 MG TABLET PO SCH ×3 (08:44→16:42)
[2020-03-16] MEDS: DOCUSATE SODIUM 250 MG CAPSULE PO SCH (08:44)
[2020-03-16] MEDS: ENOXAPARIN 40 MG/0.4 ML SYRINGE SUBQ SCH (08:45)
[2020-03-16] MEDS: polyethylene glycoL 3350 17 GM PACKET PO SCH (08:47)
[2020-03-16] MEDS: buPROPion XL 150 MG TABLET PO SCH (08:55)
[2020-03-16] MEDS: NICOTINE 14 MG PATCH TOP SCH (09:19)
[2020-03-16] MEDS: cefTRIAXone 2 GM in SODIUM CHLORIDE 0.9% MINIBAG 100 ML IV SCH (09:20)
[2020-03-16] MEDS: NYSTATIN CREAM 15 GM TUBE TOP SCH ×2 (09:25→20:32)
[2020-03-16] MEDS: VANCOMYCIN INJ 1 GM, VANCOMYCIN INJ 500 MG in SODIUM CHLORIDE 0.9% 500 ML IV SCH (09:59)
--- NOTE | 2020-03-16 11:14 | PROVIDER PROGRESS NOTE ---
Subjective - Prog Note Date Prog Note Date: 03/16/20 - Subjective Subjective: Patient report left lower extremity cellulitis is much improved, she denies pain, her erythema and warmness of her left foot and lower extremity are resolved. How she concern her left foot and lower extremity edema. Current Medications - Current Medications Current Medications: Active Medications Acetaminophen (Tylenol) 650 mg PO Q4HR PRN PRN Reason: Pain 1 to 4 Last Admin: 03/15/20 16:27 Dose: 650 mg Documented by: Atorvastatin Calcium (Lipitor) 10 mg PO QPM [facility] Last Admin: 03/15/20 20:05 Dose: 10 mg Documented by: Bupropion HCl (Wellbutrin Xl) 150 mg PO DAILY [facility] Last Admin: 03/16/20 08:55 Dose: 150 mg Documented by: Docusate Sodium (Colace 250mg Capsule) 250 - 500 mg PO DAILY [facility] Last Admin: 03/16/20 08:44 Dose: 250 mg Documented by: Enoxaparin Sodium (Lovenox) 40 mg SUBQ DAILY [facility] Last Admin: 03/16/20 08:45 Dose: 40 mg Documented by: Levofloxacin (Levofloxacin 250 Mg Tablet) 750 mg PO DAILY [facility] Multivitamins/Minerals (Theragran M) 1 tab PO DAILYWM [facility] Last Admin: 03/16/20 08:43 Dose: 1 tab Documented by: Nicotine (Nicoderm) 1 patch TOP DAILY [facility] Last Admin: 03/16/20 09:19 Dose: 1 patch Documented by: Nystatin (Mycostatin Cream) 1 applic TOP BID [facility] Last Admin: 03/16/20 09:25 Dose: 1 applic Documented by: Ondansetron HCl (Zofran Odt) 4 mg TL Q6HR PRN PRN Reason: Nausea / Vomiting Ondansetron HCl (Zofran Inj) 4 mg IVP Q6HR PRN PRN Reason: Nausea / Vomiting Oxycodone HCl (Roxicodone) 5 mg PO Q4HR PRN PRN Reason: Pain 5 to 7 Last Admin: 03/15/20 20:09 Dose: 5 mg Documented by: Polyethylene Glycol (Miralax) 17 gm PO DAILY [facility] Last Admin: 03/16/20 08:47 Dose: Not Given Documented by: Saccharomyces Boulardii (Florastor) 250 mg PO BIDWM [facility] Last Admin: 03/16/20 08:43 Dose: 250 mg Documented by: Sodium Chloride (Normal Saline Flush 0.9%) 10 ml IVP PRN PRN PRN Reason: NEEDED PER PROVIDER ORDERS Last Admin: 03/14/20 04:06 Dose: 10 ml Documented by: Sodium Chloride (Normal Saline Flush 0.9%) 10 ml IVP 0100,0900,1700 [facility] Last Admin: 03/16/20 10:01 Dose: 10 ml Documented by: Sodium Phosphate (K-Phos Neutral) 250 mg PO TIDWM [facility] Last Admin: 03/16/20 08:44 Dose: 250 mg Documented by: Throat Lozenges (Cepacol) 1 lozenge MM Q2HR PRN PRN Reason: Mouth Sore Pain Losartan [Cozaar] 25 mg PO DAILY 03/09/20 Rosuvastatin Calcium [Crestor] 5 mg PO DAILY 03/09/20 buPROPion HCl [Bupropion Xl] 150 mg PO DAILY 03/10/20 Objective - Vital Signs/Intake & Output Vital Signs: Vital Signs x48h Temp Pulse Resp BP Pulse Ox 03/16/20 08:20 36.6 C 85 16 134/89 H 97 Intake & Output: Intake & Output 03/13/20 03/14/20 03/15/20 03/16/20 23:59 23:59 23:59 23:59 Intake Total 2210.000 1949 1969 700 Balance 2210.000 1949 1969 700 - Objective General Appearance: positive: No acute distress, Alert. negative: Lethargic Eyes Bilateral: positive: Normal inspection, PERRL ENT: positive: ENT inspection nml, No signs of dehydration. negative: Purulent nasal drainage Neck: positive: Nml inspection, Thyroid nml, Trachea midline. negative: Tracheal deviation Respiratory: positive: Chest non-tender, No respiratory distress, Breath sounds nml. negative: Wheezes, Rales, Rhonchi Cardiovascular: positive: Regular rate & rhythm, No murmur. negative: Tachycardia, Bradycardia, Systolic murmur, Diastolic murmur Peripheral Pulses: 2+ Radial (R), 2+ Radial (L) Abdomen: positive: Non-tender, Nml bowel sounds, No distention. negative: Tenderness, Guarding, Rebound Back: positive: Nml inspection Skin: positive: Color nml, No rash, Dry. negative: Cyanosis, Diaphoresis, Pallor, Skin rash, Decubitus, Laceration (cm) Extremities: positive: Non-tender, Full ROM, Other (There is puffy edema on left foot and left lower extremity, and cold in left toes. weak dorsalis pedis is on left foot as well.). negative: Calf tenderness Neurologic/Psychiatric: positive: Oriented x3, Motor nml, Sensation nml, Mood/affect nml. negative: Weakness, Sensory loss, Facial droop, Slurred/abnml speech, Depressed mood/affect - Lab Results Fish Bones: 03/16/20 04:40 03/16/20 04:40 Other Labs: Lab Results x24hrs 03/16/20 03/16/20 03/16/20 Range/Units 04:40 04:40 04:40 WBC 9.5 (4.8-10.8) x10^3/uL RBC 3.68 L (4.20-5.40) 10^6/uL Hgb 11.7 L (12.0-16.0) g/dL Hct 36.0 L (37.0-47.0) % MCV 97.8 (81.0-99.0) fL MCH 31.8 H (27.0-31.0) pg MCHC 32.5 (32.0-36.0) g/dL RDW 12.9 (12.0-15.0) % Plt Count 223 (130-450) 10^3/uL MPV 10.3 (7.9-10.8) fL Neut # (Auto) 6.1 (1.5-6.6) 10^3/uL Lymph # (Auto) 2.0 (1.5-3.5) 10^3/uL [place] # (Auto) 0.8 (0.0-1.0) 10^3/uL Eos # (Auto) 0.4 (0.0-0.7) 10^3/uL Baso # (Auto) 0.1 (0.0-0.1) 10^3/uL Absolute Nucleated RBC 0.00 x10^3/uL Nucleated RBC % 0.0 /100WBC Sodium 140 (135-145) mmol/L Potassium 3.8 (3.5-5.0) mmol/L Chloride 101 (101-111) mmol/L Carbon Dioxide 28 (21-32) mmol/L Anion Gap 11.0 (6-13) BUN 16 (6-20) mg/dL Creatinine 0.7 (0.4-1.0) mg/dL Estimated GFR (MDRD) 81 L (>89) Glucose 104 H (70-100) mg/dL Calcium 8.8 (8.5-10.3) mg/dL C-Reactive Protein 1.3 H (0-1.0) mg/dL Last Dose Date Last Dose Time Vancomycin Trough (10.0-20.0) ug/mL 03/15/20 Range/Units 15:27 WBC (4.8-10.8) x10^3/uL RBC (4.20-5.40) 10^6/uL Hgb (12.0-16.0) g/dL Hct (37.0-47.0) % MCV (81.0-99.0) fL MCH (27.0-31.0) pg MCHC (32.0-36.0) g/dL RDW (12.0-15.0) % Plt Count (130-450) 10^3/uL MPV (7.9-10.8) fL Neut # (Auto) (1.5-6.6) 10^3/uL Lymph # (Auto) (1.5-3.5) 10^3/uL [place] # (Auto) (0.0-1.0) 10^3/uL Eos # (Auto) (0.0-0.7) 10^3/uL Baso # (Auto) (0.0-0.1) 10^3/uL Absolute Nucleated RBC x10^3/uL Nucleated RBC % /100WBC Sodium (135-145) mmol/L Potassium (3.5-5.0) mmol/L Chloride (101-111) mmol/L Carbon Dioxide (21-32) mmol/L Anion Gap (6-13) BUN (6-20) mg/dL Creatinine (0.4-1.0) mg/dL Estimated GFR (MDRD) (>89) Glucose (70-100) mg/dL Calcium (8.5-10.3) mg/dL C-Reactive Protein (0-1.0) mg/dL Last Dose Date Not Reportable Last Dose Time Not Reportable Vancomycin Trough 20.2 H (10.0-20.0) ug/mL ABX Reporting Has patient been on IV antibiotics over the past 48 hours?: Yes Sepsis Event Note (H) - Evaluation Current Stage of Sepsis: Ruled out Assessment/Plan - Problem List (1) Cellulitis Impression: (1) Cellulitis of left lower extremity 03/16, Great improved and nearly resolved. Patient denies left lower extremity pain, erythema and warmness all are resolved and skin color is normal, WBC is normal, CRP was trended down and today it is 1.3 nearly normal. pt has no fever or chill. although CT of Left lower extremity reveal still cellulitis and scattered superficial fascial fluid but also suggest Association overlying skin thickening on yesterday image study which was behind of clinic presentation. US of lower extremity reveals no DVT. We will switch to oral antibiotics. (2) Gram-positive bacteremia Impression: agree previous provider's assessment, it is likely on repeated blood culture with contamination. Initial blood cultures grew coag negative staph 1 out of 4 bottles. Repeat blood cultures are also growing coag negative staph in 1 out of 4 bottles. I suspect that both of these are contaminant. We will no longer repeat antibiotics. She did have an echocardiogram which also did not suggest any obvious vegetation. (3)lymphedema although Patient's cellulitis are almost resolved, Patient still present left low extremity and feet edema. Toes of left feet feel cold and Dorsalis pedis pause is weak. we check pt's left lower extremity BRIAN, advise pt rise her left lower extremity, encourage pt ambulate. (4) Elevated troponin Impression: pt has no chest pain at all, and Her hemodynamic has been stable. Her troponins did peak at over 200 but her stress test did not reveal ischemia and echocardiogram showed no wall motion abnormalities. (5) Hypertension Impression: stable, Continue losartan. 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 (7)weakness Patient present weakness and risk of the fall, consult with PT and OT, plan discharge to SNF on tomorrow Qualifiers: Site of cellulitis: extremity Site of cellulitis of extremity: lower extremity Laterality: left Qualified Code(s): L03.116 - Cellulitis of left lower limb
[2020-03-16] MEDS ORDERED: ALBUTEROL NEB 2.5 MG/3 ML INH PRN (12:39)
[2020-03-16 12:47] LABS: C. PNEUMONIAE- RESP PCR PANEL NOT DETECTED
--- NOTE | 2020-03-16 14:26 | Ultrasound Report ---
PROCEDURE: Ankle Brachial Index INDICATIONS: left lower extremity and foot edema, cold. TECHNIQUE: Ankle-brachial indices were obtained bilaterally and recorded. COMPARISONS: None. FINDINGS: Right ankle brachial index (BRIAN): 0.97 Left ankle brachial index (BRIAN): 1.0 Healing potential: Ankle pressures >55 mm Hg in non-diabetics and >80 mm Hg in diabetics are likely to achieve primary h ealing of ischemic foot ulcers. Toe pressures >30 mm Hg are likely to achieve primary healing of ischemic foot ulcers, toe or transme tatarsal amputations. IMPRESSION: Ankle-brachial brachial indices are within normal limits. Reviewed by: Dayami Orantes MD on 03/16/2020 2:24 PM PST Approved by: Dayami Orantes MD on 03/16/2020 2:24 PM PST Station ID: [id number]
[2020-03-16] MEDS: levoFLOXacin 250 MG TABLET PO SCH (14:36)
[2020-03-16] MEDS: ACETAMINOPHEN 325 MG TABLET PO PRN (16:42)
[2020-03-16] MEDS: ATORVASTATIN 10 MG TABLET PO SCH (20:32)
[2020-03-17] MEDS: oxyCODONE 5 MG TABLET PO PRN (00:29)
[2020-03-17] MEDS: SODIUM CHLORIDE FLUSH 0.9% 10 ML SYRINGE IVP SCH (00:29)
[2020-03-17 04:52] LABS: BASOPHILS # (AUTO) 0.1 10^3/uL (0.0-0.1); BASOPHILS % (AUTO) 0.7 %; EOSINOPHILS # (AUTO) 0.3 10^3/uL (0.0-0.7); EOSINOPHILS % (AUTO) 3.2 %; HGB - HEMOGLOBIN 11.3 g/dL (12.0-16.0); LYMPHOCYTES # (AUTO) 2.3 10^3/uL (1.5-3.5); LYMPHOCYTES % (AUTO) 25.9 %; MEAN CORPUSCULAR HEMOGLOBIN 31.5 pg (27.0-31.0); MEAN CORPUSCULAR HGB CONC 31.7 g/dL (32.0-36.0); MEAN CORPUSCULAR VOLUME 99.4 fL (81.0-99.0); MEAN PLATELET VOLUME 11.6 fL (7.9-10.8); MONOCYTES # (AUTO) 0.8 10^3/uL (0.0-1.0); MONOCYTES % (AUTO) 8.5 %; NEUTROPHILS # (AUTO) 5.3 10^3/uL (1.5-6.6); NEUTROPHILS % (AUTO) 59.4 %; PLT - PLATELET COUNT 242 10^3/uL (130-450); RED BLOOD COUNT 3.59 10^6/uL (4.20-5.40); RED CELL DISTRIBUTION WIDTH 12.7 % (12.0-15.0)
[2020-03-17 05:28] LABS: % IRON SATURATION 30 % (20-50); BUN - BLOOD UREA NITROGEN 16 mg/dL (6-20); CALCIUM 8.9 mg/dL (8.5-10.3); CARBON DIOXIDE - CO2 29 mmol/L (21-32); CHLORIDE 100 mmol/L (101-111); CREATININE 0.7 mg/dL (0.4-1.0); GLUCOSE 100 mg/dL (70-100); IRON 75 ug/dL (28-170); SODIUM 141 mmol/L (135-145); TOTAL IRON BINDING CAPACITY 251 ug/dL (250-450); TRANSFERRIN 179 mg/dL (192-382)
[2020-03-17 05:30] LABS: CRP - C-REACTIVE PROTEIN < 1.0 mg/dL (0-1.0)
[2020-03-17] MEDS: SACCHAROMYCES BOULARDII 250 MG CAPSULE PO SCH (09:10)
[2020-03-17] MEDS: levoFLOXacin 250 MG TABLET PO SCH (09:11)
[2020-03-17] MEDS: MULTIVITAMIN W/MINERALS TABLET PO SCH (09:12)
[2020-03-17] MEDS: DOCUSATE SODIUM 250 MG CAPSULE PO SCH (09:12)
[2020-03-17] MEDS: ACETAMINOPHEN 325 MG TABLET PO PRN (09:13)
[2020-03-17] MEDS: ENOXAPARIN 40 MG/0.4 ML SYRINGE SUBQ SCH (09:14)
[2020-03-17] MEDS: NICOTINE 14 MG PATCH TOP SCH (09:14)
[2020-03-17] MEDS: polyethylene glycoL 3350 17 GM PACKET PO SCH (09:14)
[2020-03-17 10:37] VITALS: BP 114/64
--- NOTE | 2020-03-17 10:41 | Discharge Plan ---
"Discharge Plan for SNF / JENNIFER - Discharge Plan And Transition Orders Problem Reviewed?: Yes Disposition: 03 SNF DC/Xfer Condition: Stable Allergies and Adverse Reactions: Allergies Allergy/AdvReac Type Severity Reaction Status Date / Time acetaminophen [From Vicodin] Allergy Mild Nausea Verified 03/09/20 19:16 hydrocodone bitartrate * Allergy Mild Nausea Verified 03/09/20 19:16 [From Vicodin] Health Concerns: left lower extremity cellulitis/lymphedema, weakness Plan of Treatment: pt's left lower extremity cellulitis is well controlled now, continue PO antibiotics, followup grip wrapper and cardiovascular surgeon if clinic indicated. continue PT/OT training at [facility] Care Goals: stabilization and improvement of pt's medical conditions Assessment: discussed the care plan with pt, pt understood and agreed. advise pt quit cigarette smoking. - SNF / [facility] Transition Orders Admit to (Facility): [place] Under the care of (Name): Under [facility] medical provider care Discharge Diagnosis: cellulitis of left lower extremity, gram positive bacteremia (likely contamination), lymphedema, elevated troponin (ECHO/stress test are unremarkable), HTN, TATA on CPAP, weakness, obesity Medicare Certification Statement: I certify [facility] medically necessary on a continuing basis for any of the conditions for which she/he is receiving care during hospitalization. Notify PCP of admission and forward orders to primary provider for signature. Weight on admission and: Daily Call PCP immediately if weight increases by: 2 kg Other Notification Orders: Call PCP immediately if patient develops dyspnea, chest pain/tightness or edema. House Bowel Program: Yes Additional Bowel Program Orders: If no BM after 2 days, nurse may give M.O.M. 30ml PO PRN and/or ducolax Supp 1 [place] and/or DENISE 250mg P.O., and/or senna 1-2 tabs PO. On day 3 nurse may give re peat above order until residents constipation is resolved. Annual Influenza Vaccine (between Dec 15 and July 14): Yes Two-step PPD per [facility] [id number] or approved exception documents: Yes Treatments & Other Orders: pt's left lower extremity cellulitis is well controlled now, continue PO antibiotics, followup grip wrapper and cardiovascular surgeon if clinic indicated. continue PT/OT training at SNF Medication Orders: PLEASE REFER TO THE DISCHARGE MEDICATION LIST. Insulin Orders?: No - Medications New Prescriptions: Albuterol Sulf [Ventolin Hfa Inhaler] 1 - 2 puffs INH Q4HR PRN #1 inhaler PRN Reason: Shortness Of Air/Wheezing Saccharomyces Boulardii [Florastor] 250 mg PO BIDWM #10 capsule levoFLOXacin [Levaquin] 750 mg PO DAILY #5 tablet Multivitamin W/Minerals [Theragran M] 1 tab PO DAILYWM #30 tablet - Diet Type: Geriatric Texture: Regular Liquids: Thin May have monthly special meal: Yes - Therapies | Activity Therapy: Evaluation | Treat if indicated: PT, OT Rehabilitation Potential: Maximize functional status Activity: Activity as Tolerated"
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
== END 2020-03-17 11:35 | DRG 603 ==
LOC: EDUNIT# → ED 19:04 → MS2 23:12
PROVIDERS: ADMIT Specialist; ATTEND Nurse Practitioner Gerontology
DX: L03.116 Cellulitis of left lower limb (principal); Z68.43 Body mass index [BMI] 50.0-59.9, adult; N17.9 Acute kidney failure, unspecified; E66.9 Obesity, unspecified; J44.9 Chronic obstructive pulmonary disease, unspecified; G47.33 Obstructive sleep apnea (adult) (pediatric); I10 Essential (primary) hypertension; E78.5 Hyperlipidemia, unspecified; F17.210 Nicotine dependence, cigarettes, uncomplicated; B37.2 Candidiasis of skin and nail; E86.0 Dehydration; I89.0 Lymphedema, not elsewhere classified; L84 Corns and callosities; G62.9 Polyneuropathy, unspecified; F32.9 Major depressive disorder, single episode, unspecified; F41.9 Anxiety disorder, unspecified; R77.8 Other specified abnormalities of plasma proteins; H54.7 Unspecified visual loss; R32 Unspecified urinary incontinence; Z74.09 Other reduced mobility; Z91.81 History of falling; Z79.899 Other long term (current) drug therapy
CPT/HCPCS: 36415; 71045; 73701; 76882; 78452; 80048; 80053; 80074; 80202; 81001; 82607; 82728; 83036; 83540; 83690; 83735; 83880; 83921; 84100; 84155; 84165; 84443; 84466; 84484; 85025; 85610; 85651; 86038; 86140; 86430; 87040; 87077; 87181; 87631; 93005; 93017; 93306; 93922; 93971; 94640; 94660; 96365; 96366; 97110; 97116; 97161; 97165; 97530; 99284; 99285; A9270; A9500; J1650; J2785; J3370; Q9967; 0202U; 81003; 87086

== ENCOUNTER 2020-10-15 13:58 | Outpatient (CLI) | payer MEDICARE, OTHER ==
--- NOTE | 2020-10-15 14:41 | SLEEP CARE CONSULTATION ---
Information from patient questionnaire entered by Judi Gómez. I have reviewed and concur with the information entered by Judi Gómez. This document represents the service I personally performed and the decisions made by , Adele Hernandez ARNP. History of Present Illness Service Date and Time: 10/15/2020 1358 Previous diagnosis: Moderate, Obstructive Sleep Apnea-Hypopnea Syndrome AHI: 25.3 (in 2016) Reason for follow up: annual (last seen 03/2019) Equipment type: BiPAP Equipment obtained from: [employer] (getting supplies) Mask style: Nasal Mask brand: Respironics (Wisp) Backup mask available: Yes ( old mask) Last cushion change: 3 weeks ago Prior sleep studies: Yes Year and Where: 2016 - [facility] Sleep HPI additional information: NORMA BREWSTER was diagnosed to have moderate, AHI 25.3, obstructive sleep apnea-hypopnea syndrome and returned today for BIPAP therapy annual follow-up. CPAP Compliance Data - Data Reviewed with Patient Average duration of nightly device use: 12 hours 42 minutes Compliance rate %: 100 Current pressure setting (cmH2O): 20/12 Average residual AHI: 9.8 Average large leak: 2 mins 10 secs Subjective Patient concerns: reports: dry mouth, nose, throat. denies: aerophagia, mask discomfort, air blowing in eyes, mask leak noise, condensation in mask/hose, nasal congestion, epistaxis, other Observed to snore while using device: No Current pressure setting perceived as: comfortable On therapy, patient: reports: sleeping better, awakening more refreshed, being more awake and alert during the day, more rested overall. denies: drowsiness while driving Initial [place] Sleepiness Scale score: 3 (in 2016) Current [place] Sleepiness Scale score: 3 Allergies and Home Medications Home medication list reviewed: Yes (Furosemide) Review of Systems Review of systems same as previous: Yes (no changes) Physical Exam Heart Rate: 99 O2 Saturation: 98 Height: 5 ft 2 in Weight: 282 lb Weight change since last visit: 22 pound loss Body Mass Index: 51.5 BMI Classification: Morbidly Obese Impression and Plan 1. Obstructive Sleep Apnea-Hypopnea Syndrome, moderate, with excellent treatment compliance and fair apnea control with mildly elevated AHI. On BIPAP therapy, the patient has better sleep quality and is more rested overall. Patient does have a mildly elevated residual AHI. I will consult with my medical device sales representative before adjusting her pressures. Patient asking about the recall on the DreamStation BiPAP. She states she does not like to sleep without it and is not sure what to do. She last updated her BiPAP in March 2016, so she is due for an updated machine at the end of this year. The patients BIPAP is almost 5 years old, is on recall and of reasonable use. Thus, we will try to get her BIPAP updated. A DWO prescription will be made. Compliance guidelines for new device and follow up discussed. Patient continues to use 4 L of oxygen at night through her BiPAP. She has an appointment with her doctor's office to get an updated prescription for her oxygen and oxygen concentrator. Patient has lost 22 pounds recently and she was encouraged to continue to try to lose weight. Patient's apnea severity and rationale for treatment to reduce apnea, improve sleep quality and reduce cardiovascular and cerebrovascular events was reviewed. I also reviewed the benefit of consistent device use of BIPAP for depression/an xiety. * Continue auto BIPAP pressure at 20/12 cmH2O * Consult with medical device sales representative on possible pressure change * Update BIPAP and supplies * Notify me if snoring with mask or feeling that the pressure is too much or too little * Continue to lose weight * Call this office if any problems using BIPAP * Return for follow up one month after obtaining new machine, or sooner if concerns arise Counseling Topics: Spare mask, Weight loss health impact Visit Type: In Office Time Spent with Patient (minutes): 29 Provider Statement: I spent 100% of the Face to Face Visit with the patient with greater than 50% spent counseling the patient and coordination of care.
== END 2020-10-15 13:59 | disposition home or self-care (01) ==
LOC: SC 13:58
PROVIDERS: ATTEND Nurse Practitioner Family
DX: G47.33 Obstructive sleep apnea (adult) (pediatric) (principal); E66.01 Morbid (severe) obesity due to excess calories; Z68.43 Body mass index [BMI] 50.0-59.9, adult
CPT/HCPCS: 99213; G0463; 99212

== ENCOUNTER 2020-11-30 11:09 | Outpatient (CLI) | payer MEDICARE, OTHER ==
--- NOTE | 2020-11-30 11:24 | SLEEP CARE CONSULTATION ---
Information from patient questionnaire entered by Judi Gómez. I have reviewed and concur with the information entered by Judi Gómez. This document represents the service I personally performed and the decisions made by me, Adele Hernandez ARNP. History of Present Illness Service Date and Time: 11/30/2020 1109 Previous diagnosis: Moderate, Obstructive Sleep Apnea-Hypopnea Syndrome AHI: 25.3 (in 2016) Reason for follow up: first compliance after device update Equipment type: BiPAP Equipment obtained from: [employer] (getting supplies as needed) Mask style: Nasal Mask brand: Respironics (Wisp) Backup mask available: Yes (old mask) Last cushion change: 2 weeks Prior sleep studies: Yes Year and Where: 2016 - [facility] Type of Sleep Study: Polysomnography HPI additional information: NORMA BREWSTER was diagnosed to have moderate, AHI 25.3, obstructive sleep apnea-hypopnea syndrome and returns via Telehealth visit today for BIPAP therapy first compliance after updating device follow-up. CPAP Compliance Data - Data Reviewed with Patient Average duration of nightly device use: 10 hr 58 min Compliance rate %: 97 Current pressure setting (cmH2O): 18/12 Humidity settin Average residual AHI: 4.8 Subjective Patient concerns: denies: aerophagia, mask discomfort, air blowing in eyes, mask leak noise, condensation in mask/hose, nasal congestion, dry mouth, nose, throat, epistaxis, other Observed to snore while using device: No Current pressure setting perceived as: comfortable On therapy, patient: reports: sleeping better, awakening more refreshed, being more awake and alert during the day, more rested overall. denies: drowsiness while driving Initial [place] Sleepiness Scale score: 3 (in 2016) Current [place] Sleepiness Scale score: 3 Allergies and Home Medications Home medication list reviewed: Yes (no changes) Review of Systems Review of systems same as previous: Yes (no changes) Physical Exam Vital signs obtained and entered by: Telehealth visit to reduce exposure during Covid pandemic Height: 5 ft 2 in Impression and Plan 1. Obstructive Sleep Apnea-Hypopnea Syndrome, moderate, with good treatment compliance and good apnea control. On BIPAP therapy, the patient has better sleep quality and is more rested overall. Patient is very satisfied with her new device. She states the pressure change does not feel different and she is very happy with the current settings. Her compliance report shows good control of her sleep apneas. Patient states she has lost 30 pounds over this last year. She is kind of plateaued at this time and I encouraged her to continue to concentrate on eating nutritious food and to increase her activity. She voiced understanding and agreement with this plan. I will follow up with her again next year. Patient's apnea severity and rationale for treatment to reduce apnea, improve sleep quality and reduce cardiovascular and cerebrovascular events was reviewed. I also reviewed the benefit of consistent device use of BIPAP for depression/anxiety. * Continue auto BIPAP pressure at 18/12 cmH2O * Notify me if snoring with mask or feeling that the pressure is too much or too little * Continue to try to lose weight * Call this office if any problems using BIPAP * Return for follow up in 1 year, or sooner if concerns arise Counseling Topics: Spare mask, Weight loss health impact Visit Type: Telehealth Video Video Type: VSee Patient Location: Home Location of Provider: Office Patient agrees and consents to this telehealth visit type: Yes Patient agrees to have their insurance billed: Yes Time Spent with Patient (minutes): 13 Provider Statement: I spent 100% of the Telehealth Video Call with the patient with greater than 50% spent counseling the patient and coordination of care.
== END 2020-11-30 11:10 | disposition home or self-care (01) ==
LOC: SC 11:09
PROVIDERS: ATTEND Nurse Practitioner Family
DX: G47.33 Obstructive sleep apnea (adult) (pediatric) (principal)

== ENCOUNTER 2021-10-05 10:50 | Outpatient (CLI) | payer MEDICARE, OTHER ==
[2021-10-05 15:15] LABS: CHOL/HDL RATIO 3.1 (<4.4); CHOLESTEROL 153 mg/dL; HDL CHOLESTEROL 50 mg/dL; LDL CHOLESTEROL,CALCULATED 78 mg/dL; LDL/HDL RATIO 1.6 (<4.4); TRIGLYCERIDES 126 mg/dL; VLDL CHOLESTEROL 25 mg/dL
== END 2021-10-05 10:51 | disposition home or self-care (01) ==
LOC: LAB.S 10:50
PROVIDERS: ATTEND Internal Medicine
DX: E78.5 Hyperlipidemia, unspecified (principal)
CPT/HCPCS: 36415; 80061; 83721

== ENCOUNTER 2022-01-11 13:38 | Outpatient (CLI) | payer MEDICARE, OTHER ==
--- NOTE | 2022-01-12 21:00 | XRAY Report ---
PROCEDURE: Shoulder 3 View RT INDICATIONS: PAIN OF RIGHT SHOULDER JOINT TECHNIQUE: 3 views of the shoulder were acquired. COMPARISON: None. FINDINGS: Advanced severe destructive changes in the right glenohumeral joint characterized by complete loss of joint space with [id number] endplate contact. There is The humeral head and glenoid. Subchondral sclerosis and subchondral cystic change present along with bulky marginal osteophytes. Marked elevation of the humeral head indicative of chronic rotator cuff t ear. The humeral head abuts the undersurface of the acromion. IMPRESSION: Severe end stage osteoarthritic and degenerative changes of the glenohumeral joint. Find ings are suggestive of a [place] shoulder. Reviewed by: Rui Wasserman MD on 01/12/2022 8:59 PM PDT Approved by: Rui Wasserman MD on 01/12/2022 8:59 PM PDT Station ID: [id number]
== END 2022-01-11 13:39 | disposition home or self-care (01) ==
LOC: DI.S 13:38
PROVIDERS: ATTEND Nurse Practitioner Family
DX: M19.011 Primary osteoarthritis, right shoulder (principal)

== ENCOUNTER 2022-08-11 11:48 | Outpatient (CLI) | payer MEDICARE, OTHER ==
--- NOTE | 2022-08-11 11:49 | SLEEP CARE CONSULTATION ---
Information from patient questionnaire entered by Marek Babin. I have reviewed and concur with the information entered by Marek Babin. This document represents the service I personally performed and the decisions made by me, Adele Hernandez ARNP. History of Present Illness Service Date and Time: 08/11/2022 1140 Previous diagnosis: Moderate, Obstructive Sleep Apnea-Hypopnea Syndrome AHI: 25.3 (in 2015) Reason for follow up: annual (LAST SEEN 11/2020) Equipment type: BiPAP (RESMED AirCurve 10) Equipment obtained from: [employer] (getting supplies as needed) Mask style: Nasal Mask brand: Respironics (Wisp, front of mask) Backup mask available: Yes (old mask) Last cushion change: within last month [facility]: [facility] Type of Sleep Study: Polysomnography HPI additional information: JEAN BREWSTER was diagnosed to have moderate, AHI 25.3, obstructive sleep apnea- hypopnea syndrome and returns via telehealth video visit today for BIPAP therapy annual follow-up. Sleep Study - Results Type of Sleep Study: Polysomnography Prior sleep [facility]: Yes [facility] CP[facility] Compliance Data - Data Reviewed with Patient Average duration of nightly device use: 11 HRS 48 MINS Compliance rate %: 100 (02/11/2022-08/09/22; 180/180 days used) Current pressure setting (cmH2O): 20/11 Average residual AHI: 11.5 Central apnea: 3.4 Obstructive apnea: 3.7 Hypopnea: 4.1 Average large leak: 1.7 lpm Subjective Patient concerns: reports: dry mouth, nose, throat (dry mouth, occasionally). denies: aerophagia, mask discomfort, air blowing in eyes, mask leak noise, condensation in mask/hose, nasal congestion, epistaxis Observed to snore while using device: No Current pressure setting perceived as: comfortable On therapy, patient: reports: sleeping better, awakening more refreshed, being more awake and alert during the day, more rested overall. denies: drowsiness while driving Initial [place] Sleepiness Scale score: 3 (in 2016) Current [place] Sleepiness Scale score: 0 (08/11/22) Allergies and Home Medications Known drug allergies: Yes (as listed) Drug allergies reviewed: Yes Home medication list reviewed: Yes (no changes) Allergy and home medication list: Allergies acetaminophen [From Vicodin] Allergy (Mild, Verified 08/10/22 14:10) Nausea hydrocodone bitartrate * [From Vicodin] Allergy (Mild, Verified 08/10/22 14:10) Nausea Review of Systems Review of systems same as previous: Yes (no changes) Physical Exam Vital signs obtained and entered by: MAREK Watson MA Height: 5 ft 2 in (PER PT) Weight: 272 lb (PER PT) Body Mass Index: 49.7 BMI Classification: Morbidly Obese Impression and Plan 1. Obstructive Sleep Apnea-Hypopnea Syndrome, moderate, with good treatment compliance and fair apnea control with elevated residual AHI. On BIPAP therapy, the patient has better sleep quality and is more rested overall. Patient's BiPAP comes and set at 20/11 cm H2O with an elevated residual AHI. Her last settings were at 18/12 cm H2O with good control of her sleep apnea with residual AHI 4.8. The patients pressure will be changed to BiPAP 18/12 cmH20 for elevation of residual AHI. Patient advised to contact me if pressure change is uncomfortable so that it can be adjusted. Goals for apnea control discussed. I will follow up with her in 1-2 months to recheck apnea control with changes to pressure done today. She voiced agreement and understanding. Patient's apnea severity and rationale for treatment to reduce apnea, improve sleep quality and reduce cardiovascular and cerebrovascular events was reviewed. I also reviewed the benefit of consistent device use of BIPAP for depression/anxiety. 2. Obesity, unspecified. Currently patients BMI is 49.7. Obesity increases the risk of apnea, BIPAP pressure requirements and overall health risks especially cardiovascular and diabetes. Thus patient is advised to lose weight. * Change BIPAP pressure to 18/12 cmH2O * Update supplies * Notify me if snoring with mask or feeling that the pressure is too much or too little * Attempt to lose weight * Call this office if any problems using BIPAP * Return for follow up in 1-2 months, or sooner if concerns arise Counseling Topics: Spare mask, Weight loss health impact Visit Type: Telehealth Video Video Type: Doximity Patient Location: Home Location of Provider: Office Patient agrees and consents to this telehealth visit type: Yes Patient agrees to have their insurance billed: Yes Time Spent with Patient (minutes): 18 Provider Statement: I spent 100% of the Telehealth Video Call with the patient with greater than 50% spent counseling the patient and coordination of care.
== END 2022-08-11 11:49 | disposition home or self-care (01) ==
LOC: SC 11:48
PROVIDERS: ATTEND Nurse Practitioner Family
DX: G47.33 Obstructive sleep apnea (adult) (pediatric) (principal); E66.01 Morbid (severe) obesity due to excess calories; Z68.42 Body mass index [BMI] 45.0-49.9, adult

== ENCOUNTER 2022-09-14 14:34 | Outpatient (CLI) | payer MEDICARE, OTHER ==
--- NOTE | 2022-09-14 12:01 | SLEEP CARE CONSULTATION ---
Information from patient questionnaire entered by Marek aBbin. I have reviewed and concur with the information entered by Marek Babin. This document represents the service I personally performed and the decisions made by me, Adele Hernandez ARNP. History of Present Illness Service Date and Time: 09/14/2022 1140 Previous diagnosis: Moderate, Obstructive Sleep Apnea-Hypopnea Syndrome AHI: 25.3 (in 2015) Reason for follow up: one month (F/U) Equipment type: BiPAP (RESMED AirCurve 10, s/u 10/2020) Equipment obtained from: [email or web address] (getting supplies as needed) Mask style: Nasal Mask brand: Respironics (Wisp) Backup mask available: Yes (old mask) Last cushion change: regular changes Prior sleep studies: Yes Year and Where: 2015 - [facility] Sleep Type of Sleep Study: Polysomnography HPI additional information: JEAN BREWSTER was diagnosed to have moderate, AHI 25.3, obstructive sleep apnea- hypopnea syndrome and returns via video telehealth visit today for CPAP therapy one month follow-up. Sleep Study - Results Type of Sleep Study: Polysomnography [facility]: Yes [facility] CP[facility] Compliance Data - Data Reviewed with Patient Average duration of nightly device use: 11 HRS 18 MIN Compliance rate %: 100 (-09/12/22; 30 days used) Current pressure setting (cmH2O): 18/12 Average residual AHI: 6.0 Central apnea: 2.3 Obstructive apnea: 1.5 Hypopnea: 2.0 Subjective Patient concerns: reports: mask leak noise, nasal congestion, dry mouth, nose, throat, other (occasional rednesss on top of nose). denies: aerophagia, mask discomfort, air blowing in eyes, condensation in mask/hose, epistaxis Observed to snore while using device: No Current pressure setting perceived as: comfortable On therapy, patient: reports: sleeping better, awakening more refreshed, being more awake and alert during the day, more rested overall. denies: drowsiness while driving Initial [place] Sleepiness Scale score: 3 (in 2015) Current [place] Sleepiness Scale score: 2 (09/14/22) Allergies and Home Medications Known drug allergies: Yes (as listed) Drug allergies reviewed: Yes Home medication list reviewed: Yes (no changes) Allergy and home medication list: Allergies acetaminophen [From Vicodin] Allergy (Mild, Verified 09/13/22 10:32) Nausea hydrocodone bitartrate * [From Vicodin] Allergy (Mild, Verified 09/13/22 10:32) Nausea Review of Systems Review of systems same as previous: Yes (no changes) Physical Exam Vital signs obtained and entered by: MAREK Watson MA Height: 5 ft 2 in (PER PT) Weight: 272 lb (PER PT) Body Mass Index: 49.7 BMI Classification: Morbidly Obese Impression and Plan 1. Obstructive Sleep Apnea-Hypopnea Syndrome, moderate, with good treatment compliance and fair apnea control with minimal elevation of residual AHI. On BIPAP therapy, the patient has better sleep quality and is more rested overall. She has significant improvement of her apneas but current setting is minimally ineffective. Patient has felt that the pressure is comfortable and she is feeling well in the mornings. The pressure setting will be continued and patient will call if the pressure becomes uncomfortable or she feels a worsening of her daytime fatigue or other symptoms. She gets occasional dry mouth and asks about using mouth tapes to keep lips together. I advised her to try them if she cannot tolerate a chinstrap. She voiced understanding. Patient's apnea severity and rationale for treatment to reduce apnea, improve sleep quality and reduce cardiovascular and cerebrovascular events was reviewed. I also reviewed the benefit of consistent device use of BIPAP for depression/anxiety. 2. Obesity, unspecified. Currently patients BMI is 49.7. Obesity increases the risk of apnea, BIPAP pressure requirements and overall health risks especially cardiovascular and diabetes. Thus patient is advised to lose weight. * Continue BIPAP pressure at 18/12 cmH2O * Notify me if snoring with mask or feeling that the pressure is too much or too little * Attempt to lose weight * Call this office if any problems using BIPAP * Return for follow up in 1 year, or sooner if concerns arise Counseling Topics: Spare mask, Weight loss health impact Visit Type: Telehealth Video Video Type: Doximity Patient Location: Home Location of Provider: Office Patient agrees and consents to this telehealth visit type: Yes Patient agrees to have their insurance billed: Yes Time Spent with Patient (minutes): 12 Provider Statement: I spent 100% of the Telehealth Video Call with the patient with greater than 50% spent counseling the patient and coordination of care.
== END 2022-09-14 14:35 | disposition home or self-care (01) ==
LOC: SC 14:34
PROVIDERS: ATTEND Nurse Practitioner Family
DX: G47.33 Obstructive sleep apnea (adult) (pediatric) (principal); E66.01 Morbid (severe) obesity due to excess calories; Z68.42 Body mass index [BMI] 45.0-49.9, adult

== ENCOUNTER 2023-06-05 17:02 | Outpatient (CLI) | payer MEDICARE, OTHER | END 2023-06-05 23:59 | disposition EMS.NT | LOC: EMS 17:02 | DX: Z03.89 Encounter for observation for other suspected diseases and conditions ruled out (principal) ==

== ENCOUNTER 2023-09-25 20:29 | Outpatient (CLI) | payer MEDICARE, OTHER | END 2023-09-25 20:30 | disposition left against medical advice (07) | LOC: EMS 20:29 | DX: R53.1 Weakness (principal) ==

== ENCOUNTER 2023-09-28 08:00 | Outpatient (CLI) | payer MEDICARE, OTHER ==
--- NOTE | 2023-09-28 17:20 | XRAY Report ---
PROCEDURE: Knee 3V RT INDICATIONS: RIGHT KNEE PAIN TECHNIQUE: 4 views of the knee(s) were acquired. COMPARISON: None. FINDINGS: Bones: No fractures or dislocations. Severe tricompartmental osteoarthritis is seen with near comple te loss of joint space, extensive subchondral sclerosis and marginal osteophyte formation. Significan t lateral subluxation of patella is also noted. No suspicious bony lesions. Soft tissues: No knee joint effusion. No suspicious soft tissue calcifications or masses. IMPRESSION: No acute right knee fracture or dislocation. Severe tricompartmental osteoarthritis and significant l ateral subluxation of patella. No significant joint effusion. Reviewed by: Reinier Barraza MD on 09/28/2023 5:18 PM PDT Approved by: Reinier Barraza MD on 09/28/2023 5:18 PM PDT Station ID: [id number]
== END 2023-09-28 23:59 | disposition home or self-care (01) ==
LOC: DI.S 08:00
PROVIDERS: ATTEND Registered Nurse
DX: M17.11 Unilateral primary osteoarthritis, right knee (principal); S83.011A Lateral subluxation of right patella, initial encounter

== ENCOUNTER 2023-10-03 13:44 | Outpatient (CLI) | payer MEDICARE, OTHER ==
--- NOTE | 2023-10-03 13:38 | SLEEP CARE CONSULTATION ---
Information from patient questionnaire entered by Marek Babin. I have reviewed and concur with the information entered by Marek Babin. This document represents the service I personally performed and the decisions made by me, Adele Hernandez ARNP. History of Present Illness Service Date and Time: 10/03/2023 1320 Previous diagnosis: Moderate, Obstructive Sleep Apnea-Hypopnea Syndrome AHI: 25.3 (in 2015) Reason for follow up: annual (LAST SEEN 09/2022) Equipment type: BiPAP (RESMED AirCurve 10, s/u 10/2020) Equipment obtained from: [employer] (getting supplies; getting some from [employer]) Mask style: Nasal Mask brand: Respironics ([employer]) Backup mask available: Yes (old mask) Last cushion change: monthly Prior sleep studies: Yes Year and Where: 2015 - [facility] Sleep Type of Sleep Study: Polysomnography HPI additional information: NORMA BREWSTER was diagnosed to have moderate, AHI 25.3, obstructive sleep apnea-hypopnea syndrome and returns via video appointment today for CPAP therapy annual follow-up. Sleep Study - Results Type of Sleep Study: Polysomnography Prior sleep studies: Yes Year and Where: 2015 - [facility] Sleep CPAP Compliance Data - Data Reviewed with Patient Average duration of nightly device use: 11 HRS 5 MINS Compliance rate %: 100 (10/01/22-09/30/23; 365/365 days used) Current pressure setting (cmH2O): 18/12 Average residual AHI: 4.8 Central apnea: 1.8 Obstructive apnea: 0.9 Hypopnea: 2 Average large leak: 3.9 L/min Subjective Patient concerns: reports: dry mouth, nose, throat (dry mouth, occasionally). denies: aerophagia, mask discomfort, air blowing in eyes, mask leak noise, condensation in mask/hose, nasal congestion, epistaxis Observed to snore while using device: No Current pressure setting perceived as: comfortable On therapy, patient: reports: sleeping better, awakening more refreshed, being more awake and alert during the day, more rested overall. denies: drowsiness while driving Initial [place] Sleepiness Scale score: 3 (in 2016) Current [place] Sleepiness Scale score: 3 (10/03/23) Allergies and Home Medications Known drug allergies: Yes (as listed) Drug allergies reviewed: Yes Home medication list reviewed: Yes (as listed in EMR) Allergy and home medication list: Allergies acetaminophen [From Vicodin] Allergy (Mild, Verified 10/01/23 11:17) Nausea hydrocodone bitartrate * [From Vicodin] Allergy (Mild, Verified 10/01/23 11:17) Nausea Review of Systems Review of systems same as previous: Yes (NO CHANGE) Physical Exam Vital signs obtained and entered by: MAREK Watson MA Height: 5 ft 2 in (PER PT) Weight: 261 lb (PER PT) Weight change since last visit: 11 lb loss Body Mass Index: 47.7 BMI Classification: Morbidly Obese Impression and Plan 1. Obstructive Sleep Apnea-Hypopnea Syndrome, moderate, with good treatment compliance and good apnea control. On BiPAP therapy, the patient has better sleep quality and is more rested overall. Patient has significant improvement of their sleep apnea and is satisfied with current CPAP therapy. Patient denies problems with oral dryness, nasal congestion, epistaxis, skin irritation or aerophagia. Patient's apnea severity and rationale for treatment to reduce apnea, improve sleep quality and reduce cardiovascular and cerebrovascular events was reviewed. I also reviewed the benefit of consistent device use of BiPAP for depression/anxiety. 2. Obesity, unspecified. Currently patients BMI is 47.7. She has lost weight since last year. Obesity increases the risk of apnea, BiPAP pressure requirements and overall health risks especially cardiovascular and diabetes. Thus patient is advised to continue to try to lose weight. * Continue BiPAP pressure at 18/12 cmH2O * Update supply prescription * Notify me if snoring with mask or feeling that the pressure is too much or too little * Continue to try to lose weight * Call this office if any problems using BiPAP * Return for follow up in 12 months Counseling Topics: Spare mask, Weight loss health impact Prescriptions: Device supplies Follow up with Sleep Care in: 1 year Visit Type: Telehealth Phone Video Type: Doximity Patient Location: Home Location of Provider: Office Patient agrees and consents to this telehealth visit type: Yes Time Spent with Patient (minutes): 13 Provider Statement: I spent 100% of the Telehealth Phone Call with the patient with greater than 50% spent counseling the patient and coordination of care.
== END 2023-10-03 13:45 | disposition home or self-care (01) ==
LOC: SC 13:44
PROVIDERS: ATTEND Nurse Practitioner Family
DX: G47.33 Obstructive sleep apnea (adult) (pediatric) (principal); E66.01 Morbid (severe) obesity due to excess calories; Z68.42 Body mass index [BMI] 45.0-49.9, adult
CPT/HCPCS: 99442